=== PATIENT | male | born 1955 | race Caucasian/White ===

== ENCOUNTER 2019-07-04 10:46 | Inpatient (IN) | payer OTHER ==
[~2019-07-04] VITALS: Ht 170.2 cm; Wt 108.9 kg
--- OUTSIDE RECORDS SUMMARY | 2019-07-04 10:48 | XMS REPORT | Clinical Summary ---
Author Author [facility] Address Unknown Phone Unavailable Care Team Providers Care Slasher Sawyer Name Role Phone Asked, No Pcp PCP Unavailable Allergies Not on File Medications Not on file Active Problems Not on file Encounters Care Team Description Date Type Specialty Diane Gaitan MD Routine medical exam (Primary Dx) 05/24/2019 [facility] after 07/03/2018 Social History Date Tobacco Use Types Packs/Day Years Used Never Assessed Sex Assigned at Date Recorded Not on file Industry Job Start Date Occupation Not on file Not on file Not on file Travel End Travel History Travel Start No recent travel history available. Last Filed Vital Signs Not on file Plan of Treatment Health Maintenance Due Date Last Done Comments COLONOSCOPY SCREENING 2006 SHINGLES VACCINES (#1) 2006 INFLUENZA VACCINE 05/18/2019 Procedures Comments Procedure Name Priority Date/Time Associated Diagnosis WELLNESS EVENT QFT Routine 05/24/2019 Routine medical exam 10:27 AM CDT after 07/03/2018 Results * Wellness event QFT (05/24/2019 10:27 AM CDT) [facility] Quantiferon TB NEGATIVE [facility] gold plus Comment: Interpretive Data: Quantiferon TB Gold Plus Interferon gamma release is measured for specimens from each of the four collection tubes. A qualitative result (Negative, Positive, or Indeterminate) is based on interpretation of the four values, NIL, MITOGEN minus NIL (MITOGEN-NIL), TB1 minus NIL (TB1-NIL), and TB2 minus NIL (TB2-NIL). The NIL value represents nonspecific reactivity produced by the patient specimen. The MITOGEN-NIL value serves as the positive control for the patient specimen, demonstrating successful lymphocyte activity. The TB1-NIL tube specifically detects CD4+ lymphocyte reactivity, specifically stimulated by the TB1 antigens. The TB2-NIL tube detects both CD4+ and CD8+ lymphocyte reactivity, stimulated by TB2 antigens. An overall Negative result does not completely rule out TB infection. A false-positive result in the absence of other clinical evidence of TB infection is not uncommon. Refer to: Updated Guidelines for Using Interferon Gamma Release Assays to Detect Mycobacterium tuberculosis Infection --- [place], 2010 (http://www.cdc.gov/mmwr/previ ew/mmwrhtml/rc1028z3.htm), for more information concerning test performance in low-prevalence populations and use in occupational screening. Quantiferon 0.10 0.00 - 0.34 IU/mL [facility] plus TB1 minus NIL Quantiferon 0.16 0.00 - 0.34 IU/mL [facility] plus TB2 minus NIL Quantiferon 8.25 IU/mL [facility] mitogen minus NIL Quantiferon NIL 0.02 IU/mL [facility] Comment: Performed by [facility], [address] [place] [address] [email or web address], Emigdio Gilmore MD - Lab. Director Specimen Serum Performing Organization Address [facility] Phone Number [facility] [address] [place] [address] [facility] [address] [place] [address] after 07/03/2018 Insurance Type Payer Benefit Subscriber ID Effective Phone Address Plan / Dates Group HMO CIGNA CIGNA OPEN xxxxxxxxxxx 2017-P ACCESS/NET resent WORK Advance Directives For more information, please contact: [phone] Patient Academic Director Explanation Type Date Recorded Advance Directives, Living Will and Medical Power of Inside Technical Sales Representative
--- OUTSIDE RECORDS SUMMARY | 2019-07-04 10:49 | XMS REPORT | Continuity of Care Document ---
Author Author [id number] Organization [email or web address] Address Unknown Phone Unavailable Care Team Providers Care Senior Systems Developer Name Role Phone [facility] Unavailable Unavailable Problems Problem Status Onset Date Classification Date Reported Comments Source CHEST PAIN Active 05/14/2012 [facility] CHEST PAIN TYPICAL Active 05/14/2012 [facility] Acute non-ST segment elevation myocardial infarction Active Problem 05/19/2012 [facility] Chest pain Active Problem 05/19/2012 [facility] CHEST PAIN NOS Active [facility] Medications Medication Details Route Status Patient Instructions Ordering Provider Order Date Source metoprolol 25 mg oral tablet, extended release 25 mg, 1 tab, PO, Daily, 30 tab, 1, 1, Substitution Allowed, ERTAB PO Active [facility] 05/17/2012 [facility] aspirin 325 mg tablet, enteric coated 325 mg, 1 tab, PO, Daily, 30 tab, 1, 1, Substitution Allowed, ECTAB [place] [facility] [place] [facility] Plavix 75 mg oral tablet 75 mg, 1 tab, PO, Daily, 30 tab, 1, 1, Substitution Allowed, TAB PO Active [facility] 05/17/2012 [facility] docusate sodium 100 mg oral capsule 100 mg, 1 cap, Route: PO, Drug form: CAP, BID, PRN Bowel Movements, Priority: NOW, Start date: 05/17/12 10:51:00, Duration: 30 day, Stop date: 06/16/12 10:50:00 PO No Longer [place] [facility] [place]2012 [facility] calcium gluconate + Sodium Chloride 0.9% IV 80 mL 2,000 mg, 20 mL, Route: IVPB, ONCE, Start date: 05/17/12 9:58:00, Stop date: 05/17/12 9:58:00 IVPB No Longer [place] [facility] [place]/17/2012 [facility] magnesium sulfate 2 gm, 50 mL, Route: IVPB, Drug form: INJ, ONCE, Total dose=2 gm, Start date: 05/17/12 9:58:00, Duration: 1 doses or times, Stop date: 05/17/12 9:58:00 IVPB No Longer Active [facility] 05/17/2012 [facility] Protonix 40 mg, 1 tab, Route: PO, Drug form: ECTAB, Before Dinner, Start date: 05/16/12 16:30:00, Duration: 30 day, Stop date: 06/14/12 16:30:00 PO No Longer Active [facility] 05/16/2012 [facility] Plavix 75 mg, 1 tab, Route: PO, Drug form: TAB, Daily, Start date: 05/16/12 9:00:00, Duration: 30 day, Stop date: 06/14/12 9:00:00 PO No Longer Active [facility] 05/16/2012 [facility] magnesium oxide 400 mg, 1 tab, Route: PO, Drug form: TAB, BID, Start date: 05/16/12 9:00:00, Duration: 30 day, Stop date: 06/14/12 17:00:00 [facility] heparin 5000 units/mL injectable solution 5,000 unit, 1 mL, Route: SUB-Q, Drug form: INJ, Q8H, Start date: 05/16/12 0:00:00, Duration: 30 day, Stop date: 06/14/12 16:00:00 [facility]-Q [facility] pravastatin 20 mg, 1 tab, Route: PO, Drug form: TAB, QPM, Start date: 05/15/12 17:00:00, Duration: 30 day, Stop date: 06/13/12 17:00:00 PO No Longer Active [facility] 05/15/2012 [facility] clopidogrel 600 mg, 8 tab, Route: PO, Drug form: TAB, ONCE, Start date: 05/15/12 9:55:00, Duration: 1 doses or times, Stop date: 05/15/12 9:55:00 PO No Longer Active [facility] 05/15/2012 [facility] aspirin 325 mg, 1 tab, Route: PO, Drug form: TAB, Daily, Start date: 05/15/12 9:00:00, Duration: 30 day, Stop date: 06/13/12 9:00:00 PO No Longer Active [facility] 05/15/2012 [facility] pneumococcal 23-valent vaccine 0.5 ml, Route: IM, Drug Form: INJ, Daily, Start date: 05/15/12 9:00:00, Duration: 1 doses or times, Stop date: 05/15/12 9:00:00 IM No Longer Active [facility] 05/15/2012 [facility] heparin 5,000 unit, 1 mL, Route: SUB-Q, Drug form: INJ, Q12H, Start date: 05/15/12 9:00:00, Duration: 30 day, Stop date: 06/13/12 21:00:00 SUB-Q No Longer [place] [facility] [place]/2012 [facility] metoprolol extended release 25 mg, 1 tab, Route: PO, Drug form: ERTAB, Daily, Start date: 05/15/12 9:00:00, Duration: 30 day, Stop date: 06/13/12 9:00:00 PO No Longer Active [facility] 05/15/2012 [facility] lisinopril 10 mg, 1 tab, Route: PO, Drug form: TAB, Daily, Start date: 05/15/12 9:00:00, Duration: 30 day, Stop date: 06/13/12 9:00:00 PO No Longer Active [facility] 05/15/2012 [facility] heparin 2,400 unit, 2.4 mL, Route: IV, Drug form: INJ, PRN, PRN Abnormal Lab Result, Start date: 05/15/12 3:42:00, Duration: 30 day, Stop date: 06/14/12 3:41:00 IV No Longer [place] [facility] [place]/2012 [facility] Heparin - infusion (ACS Protocol) heparin 25,000 units in D5W 500 mL Premix 25,000 unit 25,000 unit, 500 mL, Rate: Start at 13 units/kg/hr - adjust per ACS protocol, Route: IV, Total Volume: 500 ml, Start date: 05/15/12 3:29:00, Duration: 30 day, Stop date: 06/14/12 3:28:00, Replace Every: 24 hr IV No Longer Active [facility] 05/15/2012 [facility] Heparin - one time bolus for ACS 4,900 unit, 4.9 mL, Route: IV, Drug form: INJ, ONCE, Priority: STAT, Start date: 05/15/12 3:29:00, Stop date: 05/15/12 3:29:00 IV No Longer Active [facility] 05/15/2012 [facility] Tradjenta 5 mg oral tablet 5 mg, 1 tab, PO, Daily, Substitution Allowed PO Active 05/15/2012 [facility] lisinopril 10 mg oral tablet 10 mg, 1 tab, PO, Daily, Substitution Allowed PO Active 05/15/2012 [facility] pravastatin 20 mg oral tablet 20 mg, 1 tab, PO, Daily, Substitution Allowed PO Active 05/15/2012 [facility] insulin aspart 2 unit, 0.02 mL, Route: SUB-Q, Drug form: SOLN, TID-Before Meals, PRN Blood Glucose Results, Start date: 05/15/12 0:46:00, Duration: 30 day, Stop date: 06/14/12 0:45:00 SUB- Q No Longer Active [facility] 05/15/2012 [facility] glucagon 1 mg, Route: IM, Drug form: PDR/INJ, PRN, PRN Blood Glucose Results, Start date: 05/15/12 0:46:00, Duration: 30 day, Stop date: 06/14/12 0:45:00 IM No Longer Active [facility] 05/15/2012 [facility] Dextrose 50% Syringe 12.5 gm, 25 mL, Route: IVP, Drug Form: INJ, PRN, PRN Blood Glucose Results, Start date: 05/15/12 0:46:00, Duration: 30 day, Stop date: 06/14/12 0:45:00 IVP No Longer Active [facility] 05/15/2012 [facility] acetaminophen 650 mg, 2 tab, Route: PO, Drug form: TAB, Q4H, PRN Pain/Fever, Start date: 05/15/12 0:36:00, Duration: 30 day, Stop date: 06/14/12 0:35:00 PO No Longer Active [facility] 05/15/2012 [facility] temazepam 15 mg, 1 cap, Route: PO, Drug form: CAP, Bedtime, PRN Insomnia, Start date: 05/15/12 0:36:00, Duration: 30 day, Stop date: 06/14/12 0:35:00 PO No Longer Active [facility] 05/15/2012 [facility] Omnipaque 350mg/ml 150 mL, Route: IVP, Drug Form: SOLN, ONCALL, STAT, Start date: 05/14/12 22:40:00, Duration: 1 doses or times, Dose=2.2ml/kg, Max tezt=830egAhev=4.2ml/kg, Max gmvh=399ie IVP No Longer Active [facility] 05/15/2012 [facility] morphine Sulfate 2 mg, 0.5 mL, Route: IVP, Drug form: INJ, ONCE, Priority: STAT, Start date: 05/14/12 22:33:00, Stop date: 05/14/12 22:33:[address] [facility] 05/15/2012 [facility] nitroglycerin 2% topical ointment 1 inch, Route: TOP, ONCE, STAT, Start date: 05/14/12 22:14:00, Stop date: 05/14/12 22:14:00 TOP No Longer Active [facility] 05/15/2012 [facility] nitroglycerin SL Tab 0.6 mg, Route: SL, ONCE, Start date: 05/14/12 22:11:00, Stop date: 05/14/12 22:11:[address] Long[address] [facility] 05/15/2012 [facility] NS (Bolus) IV 1,000 mL 1,000 mL, Rate: 1,000 ml/hr, Infuse over: 1 hr, Route: IV, Dosing Weight 100 kg, Total Volume: 1,000, Start date: 05/14/12 21:09:00, Duration: 30 day, Stop date: 06/13/12 21:08:00 IV No Longer Active [facility] 05/15/2012 [facility] morphine Sulfate 2 mg, 0.5 mL, Route: IVP, Drug form: INJ, ONCE, Priority: STAT, Start date: 05/14/12 20:54:00, Stop date: 05/14/12 20:54:00 IVP No Longer Active [facility] 05/15/2012 [facility] metoprolol tartrate Substitution Allowed No Longer Active 05/15/2012 [facility] metFORmin 1,000 mg, PO, BID, Substitution Allowed PO Active 05/15/2012 [facility] aspirin 81 mg tablet, enteric coated 81 mg, 1 tab, Route: PO, Drug form: ECTAB, ONCE, Priority: STAT, Start date: 05/14/12 19:58:00, Stop date: 05/14/12 19:58:00 PO No Longer Active [facility] 05/15/2012 [facility] morphine Sulfate 4 mg, 1 mL, Route: IVP, Drug form: INJ, ONCE, Priority: STAT, Start date: 05/14/12 19:58:00, Stop date: 05/14/12 19:58:00 IVP No Longer Active [facility] 05/15/2012 [facility] Allergies, Adverse Reactions, Alerts Substance Category Reaction Severity Reaction type Status Date Reported Comments Source Zocor drug allergy Allergy Active [facility] Immunizations Immunization Date Given Site Status Last Updated Comments Source pneumococcal 23-valent vaccine 05/15/2012 completed Katharina [facility] Results Order Name Results Value Reference Range Date Interpretation Comments Source BEDSIDE GLUCOSE TESTING Gluc POC Lifscn 203 70 - 99 05/17/2012 HI <sup>1</sup>Interpretive Data: Upper Reportable Limit: 200 mg/dL. [facility] BEDSIDE GLUCOSE TESTING Gluc POC Lifscn 69 70 - 99 05/17/2012 LOW <sup>2</sup>Interpretive Data: Upper Reportable Limit: 200 mg/dL. [facility] CHEMISTRY Phosphorus 4.1 2.5 - 4.5 05/17/2012 Normal [facility] CHEMISTRY Ca Ion 1.02 1.16 - 1.30 05/17/2012 LOW [facility] CHEMISTRY Ca Norm 1.04 1.16 - 1.30 05/17/2012 LOW [facility] CHEMISTRY Ca Norm mgdL 4.16 4.65 - 5.20 05/17/2012 LOW [facility] CHEMISTRY Ca Ion mgdL 4.08 4.65 - 5.20 05/17/2012 LOW [facility] CHEMISTRY Magnesium Lvl 1.7 1.8 - 2.4 05/17/2012 LOW [facility] CHEMISTRY AGAP 16.2 10.0 - 20.0 05/17/2012 Normal [facility] CHEMISTRY Calcium Lvl 8.8 8.5 - 10.5 05/17/2012 Normal [facility] CHEMISTRY CO2 23 24 - 32 05/17/2012 LOW [facility] CHEMISTRY Glucose Lvl 120 70 - 99 05/17/2012 HI <sup>5</sup>Interpretive Data: Adult reference range values reflect the clinical guidelines
of the [place] [employer]. [facility] CHEMISTRY Creatinine Lvl 0.9 0.5 - 1.4 05/17/2012 Normal [facility] CHEMISTRY Chloride Lvl 106 95 - 109 05/17/2012 Normal [facility] CHEMISTRY Potassium Lvl 4.2 3.5 - 5.1 05/17/2012 Normal <sup>4</sup>Result Comment: Specimen Slightly Hemolyzed. [facility] CHEMISTRY BUN 15 7 - 22 05/17/2012 Normal [facility] CHEMISTRY Sodium Lvl 141 135 - 145 05/17/2012 Normal [facility] HEMATOLOGY Eosinophils # 0.3 0.0 - 0.5 05/17/2012 Normal [facility] HEMATOLOGY Lymphocytes # 2.9 1.0 - 5.5 05/17/2012 Normal [facility] HEMATOLOGY Segs-Bands # 6.6 1.5 - 8.1 05/17/2012 Normal [facility] HEMATOLOGY Monocytes # 0.6 0.0 - 0.8 05/17/2012 Normal [facility] HEMATOLOGY Basophils # 0.1 0.0 - 0.2 05/17/2012 Normal [facility] HEMATOLOGY Segs 63.4 45.0 - 75.0 05/17/2012 Normal [facility] HEMATOLOGY Lymphocytes 27.5 20.0 - 40.0 05/17/2012 Normal [facility] HEMATOLOGY Eosinophils 2.8 0.0 - 4.0 05/17/2012 Normal [facility] HEMATOLOGY Monocytes 5.8 2.0 - 12.0 05/17/2012 Normal [facility] HEMATOLOGY Basophils 0.5 0.0 - 1.0 05/17/2012 Normal [facility] HEMATOLOGY MCHC 33.5 32.0 - 36.0 05/17/2012 Normal [facility] HEMATOLOGY MPV 9.1 7.4 - 10.4 05/17/2012 Normal [facility] HEMATOLOGY Platelet 196 133 - 450 05/17/2012 Normal [facility] HEMATOLOGY RDW 13.6 11.5 - 14.5 05/17/2012 Normal [facility] HEMATOLOGY Hct 39.0 42.0 - 54.0 05/17/2012 LOW [facility] HEMATOLOGY MCV 87.4 80.0 - 94.0 05/17/2012 Normal [facility] HEMATOLOGY MCH 29.3 27.0 - 31.0 05/17/2012 Normal [facility] HEMATOLOGY Hgb 13.1 14.0 - 18.0 05/17/2012 LOW [facility] HEMATOLOGY WBC 10.5 3.7 - 10.4 05/17/2012 HI [facility] HEMATOLOGY RBC 4.47 4.70 - 6.10 05/17/2012 [facility] BEDSIDE GLUCOSE TESTING Gluc POC Lifscn 134 70 - 99 05/17/2012 HI <sup>3</sup>Interpretive Data: Upper Reportable Limit: 200 mg/dL. [facility] HEMATOLOGY Plav Effect Plt 26 05/16/2012 NA <sup>18</sup>Result Comment: called to jessica montalvo 05/16/2012 15:22:37 CDT by rve.
<sup>19</sup>Interpretive Data: Plavix (P2Y12) Platelet Function Test:
Therapeutic - Higher % inhibition associated with expected
anti-platelet effect
Pre-Surgical - Less than 20% inhibition

Note:
Results are reported in percent inhibition (Percent change
from baseline aggregation - Calculated from the PRU result
and the Base result). For pre-operative clearance a level of
less than 20% inhibition is recommended. No definitive
relationship has been drawn between percentage inhibition
and dosage.

Interference:
Platelet counts less than 120,000 or greater than 502,000
Hematocrit values less than 33% or greater than 52%
Patient taking GP IIb/IIIa Inhibitor, e.g. ReoPro or Integrilin [facility] BEDSIDE GLUCOSE TESTING Comment1 Notify RN/MD 05/16/2012 NA [facility] CHEMISTRY Magnesium Lvl 1.7 1.8 - 2.4 05/16/2012 LOW [facility] CHEMISTRY Ca Ion 1.23 1.16 - 1.30 05/16/2012 Normal [facility] CHEMISTRY Ca Ion mgdL 4.92 4.65 - 5.20 05/16/2012 Normal [facility] CHEMISTRY Ca Norm 1.26 1.16 - 1.30 05/16/2012 Normal [facility] CHEMISTRY Ca Norm mgdL 5.04 4.65 - 5.20 05/16/2012 Normal [facility] CHEMISTRY Calcium Lvl 9.0 8.5 - 10.5 05/16/2012 Normal [facility] CHEMISTRY CO2 26 24 - 32 05/16/2012 Normal [facility] CHEMISTRY Chloride Lvl 104 95 - 109 05/16/2012 Normal [facility] CHEMISTRY Sodium Lvl 142 135 - 145 05/16/2012 Normal [facility] CHEMISTRY Creatinine Lvl 0.9 0.5 - 1.4 05/16/2012 Normal [facility] CHEMISTRY BUN 14 7 - 22 05/16/2012 Normal [facility] CHEMISTRY Potassium Lvl 4.0 3.5 - 5.1 05/16/2012 Normal [facility] CHEMISTRY Glucose Lvl 130 70 - 99 05/16/2012 HI <sup>6</sup>Interpretive Data: Adult reference range values reflect the clinical guidelines
of the [place] [employer]. [facility] CHEMISTRY AGAP 16.0 10.0 - 20.0 05/16/2012 Normal [facility] CHEMISTRY Phosphorus 4.6 2.5 - 4.5 05/16/2012 HI [facility] HEMATOLOGY Segs-Bands # 6.6 1.5 - 8.1 05/16/2012 Normal [facility] HEMATOLOGY Lymphocytes # 2.5 1.0 - 5.5 05/16/2012 Normal [facility] HEMATOLOGY Monocytes # 0.7 0.0 - 0.8 05/16/2012 Normal [facility] HEMATOLOGY Basophils 0.2 0.0 - 1.0 05/16/2012 Normal [facility] HEMATOLOGY Segs 64.8 45.0 - 75.0 05/16/2012 Normal [facility] HEMATOLOGY Eosinophils # 0.3 0.0 - 0.5 05/16/2012 Normal [facility] HEMATOLOGY Basophils # 0.0 0.0 - 0.2 05/16/2012 Normal [facility] HEMATOLOGY Lymphocytes 24.5 20.0 - 40.0 05/16/2012 [facility] HEMATOLOGY Monocytes 7.1 2.0 - 12.0 05/16/2012 [facility] HEMATOLOGY Eosinophils 3.4 0.0 - 4.0 05/16/2012 [facility] HEMATOLOGY MCV 87.7 80.0 - 94.0 05/16/2012 [facility] HEMATOLOGY MCHC 33.5 32.0 - 36.0 05/16/2012 [facility] HEMATOLOGY RDW 13.4 11.5 - 14.5 05/16/2012 [facility] HEMATOLOGY MCH 29.4 27.0 - 31.0 05/16/2012 [facility] HEMATOLOGY Platelet 200 133 - 450 05/16/2012 [facility] HEMATOLOGY MPV 9.1 7.4 - 10.4 05/16/2012 [facility] HEMATOLOGY WBC 10.2 3.7 - 10.4 05/16/2012 [facility] HEMATOLOGY RBC 4.36 4.70 - 6.10 05/16/2012 [facility] HEMATOLOGY Hct 38.2 42.0 - 54.0 05/16/2012 [facility] HEMATOLOGY Hgb 12.8 14.0 - 18.0 05/16/2012 [facility] BEDSIDE GLUCOSE TESTING Comment1 Notify RN/ 05/16/2012 [facility] CHEMISTRY U Phencyc Scr Negative *NA* (05/15/2012 10:23:00) Negative 05/15/2012 [facility] CHEMISTRY UDS Note See Note 14 (05/15/2012 10:23:00) 05/15/2012 Normal <sup>14</sup>Interpretive Data: Drugs reported as positive have not been confirmed by a second
method and should be used for medical purposes only. To order
confirmation, contact laboratory.

note: Below are cut-off concentrations for all urine drugs of
abuse performed in the laboratory. Some drugs listed in the table
may not be included in this panel.

Description Cut-off concentration

Amphetamine 1000 ng/mL
Barbiturates 200 ng/mL
Benzodiazepines 300 ng/mL
Cocaine metabolites 300 ng/mL
Opiates 300 ng/mL
Phencyclidine 25 ng/mL
Propoxyphene 300 ng/mL
Marijuana metabolites 50 ng/mL
Methadone 300 ng/ mL
Urine alcohol 20 mg/dL [facility] CHEMISTRY U Opiate Scr Positive *ABN* (05/15/2012 10:23:00) Negative 05/15/2012 ABN [facility] CHEMISTRY U Cannab Scr Negative *NA* (05/15/2012 10:23:00) Negative 05/15/2012 NA [facility] CHEMISTRY U Benzodia Scr Negative *NA* (05/15/2012 10:23:00) Negative 05/15/2012 [facility] CHEMISTRY U Cocaine Scr Negative *NA* (05/15/2012 10:23:00) Negative 05/15/2012 NA [facility] CHEMISTRY U Amph Scr Negative *NA* (05/15/2012 10:23:00) Negative 05/15/2012 [facility] CHEMISTRY U Adilene Scr Negative *NA* (05/15/2012 10:23:00) Negative 05/15/2012 NA [facility] CHEMISTRY U Propoxyph Scr Negative *NA* (05/15/2012 10:23:00) Negative 05/15/2012 [facility] CHEMISTRY U Methadone Scr Negative *NA* (05/15/2012 10:23:00) Negative 05/15/2012 [facility] HEMATOLOGY PTT 44.9 22.9 - 35.8 05/15/2012 HI <sup>16</sup>Interpretive Data: Heparin Therapeutic Range: 57 - 92 Seconds [facility] BEDSIDE GLUCOSE TESTING Comment1 Notify RN/ 05/15/2012 [facility] CHEMISTRY Troponin-T 0.128 0.000 - 0.100 05/15/2012 CRIT <sup>8</sup>Result Comment: Critical Result(s) called to Day Desai at 05/15/2012 08:16:05 CDT by Melvin. Read back OK. [facility] CHEMISTRY Total CK 259 12 - 191 05/15/2012 [facility] CHEMISTRY Troponin-I 2.72 0.00 - 0.40 05/15/2012 CRIT <sup>10</sup>Result Comment: Critical Result(s) called to day katharina at 05/15/2012 08:10:32 CDT by mlban. Read back OK. [facility] CHEMISTRY Hgb A1C 7.6 05/15/2012 NA <sup>13</sup>Interpretive Data: HbA1C% eAG(mg/dL) Interpretation
6.0 126 Very good control
6.5 140 Very good control
7.0 154 Good Control
7.5 169 Good Control
8.0 183 Marginal Control, take action to lower
8.5 197 Marginal Control, take action to lower
9.0 212 Poor Control, take action to lower
9.5 226 Poor Control, take action to lower
10.0 240 Poor Control, take action to lower [facility] CHEMISTRY CK MB Index 6.8 0.0 - 2.5 05/15/2012 [facility] CHEMISTRY CK MB 17.6 0.5 - 3.6 05/15/2012 [facility] HEMATOLOGY Lymphocytes # 3.8 1.0 - 5.5 05/15/2012 [facility] HEMATOLOGY Segs-Bands # 6.2 1.5 - 8.1 05/15/2012 [facility] HEMATOLOGY Basophils 0.5 0.0 - 1.0 05/15/2012 [facility] HEMATOLOGY Eosinophils 2.7 0.0 - 4.0 05/15/2012 [facility] HEMATOLOGY Monocytes 6.1 2.0 - 12.0 05/15/2012 Normal [facility] HEMATOLOGY Basophils # 0.1 0.0 - 0.2 05/15/2012 [facility] HEMATOLOGY Eosinophils # 0.3 0.0 - 0.5 05/15/2012 [facility] HEMATOLOGY Monocytes # 0.7 0.0 - 0.8 05/15/2012 [facility] HEMATOLOGY Lymphocytes 34.4 20.0 - 40.0 05/15/2012 Normal [facility] HEMATOLOGY Segs 56.3 45.0 - 75.0 05/15/2012 Normal [facility] HEMATOLOGY RBC 4.04 4.70 - 6.10 05/15/2012 [facility] HEMATOLOGY MCHC 34.0 32.0 - 36.0 05/15/2012 Normal [facility] HEMATOLOGY MCH 29.7 27.0 - 31.0 05/15/2012 Normal [facility] HEMATOLOGY MCV 87.4 80.0 - 94.0 05/15/2012 Normal [facility] HEMATOLOGY Hct 35.4 42.0 - 54.0 05/15/2012 [facility] HEMATOLOGY Hgb 12.0 14.0 - 18.0 05/15/2012 [facility] HEMATOLOGY RDW 13.7 11.5 - 14.5 05/15/2012 Normal [facility] HEMATOLOGY MPV 9.1 7.4 - 10.4 05/15/2012 Normal [facility] HEMATOLOGY Platelet 195 133 - 450 05/15/2012 Normal [facility] HEMATOLOGY WBC 11.1 3.7 - 10.4 05/15/2012 HI [facility] HEMATOLOGY PTT 31.0 22.9 - 35.8 05/15/2012 Normal <sup>17</sup>Interpretive Data: Heparin Therapeutic Range: 57 - 92 Seconds [facility] HEMATOLOGY INR 1.05 0.85 - 1.17 05/15/2012 Normal <sup>15</sup>Interpretive Data: RECOMMENDED RANGES FOR PROTIME INR:
2.0-3.0 for most medical and surgical thromboembolic states.
2.5-3.5 for artificial heart valves and recurrent embolism.

INR SHOULD BE USED ONLY FOR PATIENTS ON STABLE ANTICOAGULANT THERAPY. [facility] HEMATOLOGY PT 13.7 12.0 - 14.7 05/15/2012 Normal [facility] CHEMISTRY Ca Ion mgdL 4.60 4.65 - 5.20 05/15/2012 [facility] CHEMISTRY Ca Norm 1.18 1.16 - 1.30 05/15/2012 Normal [facility] CHEMISTRY Ca Norm mgdL 4.72 4.65 - 5.20 05/15/2012 Normal [facility] CHEMISTRY Ca Ion 1.15 1.16 - 1.30 05/15/2012 LOW [facility] CHEMISTRY Phosphorus 3.6 2.5 - 4.5 05/15/2012 Normal [facility] CHEMISTRY Magnesium Lvl 1.5 1.8 - 2.4 05/15/2012 LOW [facility] CHEMISTRY AGAP 17.0 10.0 - 20.0 05/15/2012 Normal [facility] CHEMISTRY Calcium Lvl 8.4 8.5 - 10.5 05/15/2012 LOW [facility] CHEMISTRY CO2 23 24 - 32 05/15/2012 LOW [facility] CHEMISTRY Chloride Lvl 105 95 - 109 05/15/2012 Normal [facility] CHEMISTRY Potassium Lvl 4.0 3.5 - 5.1 05/15/2012 Normal [facility] CHEMISTRY Sodium Lvl 141 135 - 145 05/15/2012 Normal [facility] CHEMISTRY Creatinine Lvl 0.9 0.5 - 1.4 05/15/2012 Normal [facility] CHEMISTRY BUN 13 7 - 22 05/15/2012 Normal [facility] CHEMISTRY Glucose Lvl 117 70 - 99 05/15/2012 HI <sup>7</sup>Interpretive Data: Adult reference range values reflect the clinical guidelines
of the [place] [employer]. [facility] CHEMISTRY Troponin-T 0.148 0.000 - 0.100 05/15/2012 CRIT <sup>9</sup>Result Comment: Critical Result(s) called to Dacia Weiss at _05/15/2012 02:58:06 CDT [facility] [place]. Read back OK. [facility] CHEMISTRY Troponin-I 2.91 0.00 - 0.40 05/15/2012 CRIT <sup>11</sup>Result Comment: Critical Result(s) called to cherelle ray at 05/15/2012 02:34:53 CDT bydrake. Read back OK. [facility] CHEMISTRY Total CK 252 12 - 191 05/15/2012 HI [facility] CHEMISTRY LDL 78 0 - 129 05/15/2012 Normal [facility] CHEMISTRY Chol 147 120 - 200 05/15/2012 Normal [facility] CHEMISTRY HDL 42 >=35 05/15/2012 Normal [facility] CHEMISTRY Trig 133 0 - 200 05/15/2012 Normal [facility] CHEMISTRY CHD Risk 3.50 4.00 - 7.30 05/15/2012 LOW [facility] CHEMISTRY TSH 2.780 0.360 - 3.740 05/15/2012 Normal [facility] CHEMISTRY CK MB 18.9 0.5 - 3.6 05/15/2012 [facility] CHEMISTRY CK MB Index 7.5 0.0 - 2.5 05/15/2012 [facility] CHEMISTRY Bili Total 0.4 0.2 - 1.3 05/15/2012 Normal [facility] CHEMISTRY Alk Phos 115 39 - 136 05/15/2012 Normal [facility] CHEMISTRY AST 40 0 - 37 05/15/2012 [facility] CHEMISTRY Total Protein 7.8 6.4 - 8.4 05/15/2012 Normal [facility] CHEMISTRY Albumin Lvl 4.3 3.5 - 5.0 05/15/2012 Normal [facility] CHEMISTRY ALT 46 0 - 65 05/15/2012 Normal [facility] CHEMISTRY B/C Ratio 13 6 - 25 05/15/2012 Normal [facility] CHEMISTRY Globulin 3.5 2.0 - 4.0 05/15/2012 Normal [facility] CHEMISTRY A/G Ratio 1.2 0.7 - 1.6 05/15/2012 Normal [facility] CHEMISTRY Troponin-I 1.62 0.00 - 0.40 05/15/2012 CRIT <sup>12</sup>Result Comment: Critical Result(s) called to Shae Pena at _05/14/2012 21:30:13 CDT by_fcl. Read back OK. [facility] CHEMISTRY Myoglobin 82 25 - 72 05/15/2012 [facility] CHEMISTRY Troponin-T 0.092 0.000 - 0.100 05/15/2012 Normal [facility] CHEMISTRY Total CK 239 12 - 191 05/15/2012 [facility] CHEMISTRY CK MB Index 7.0 0.0 - 2.5 05/15/2012 [facility] CHEMISTRY CK MB 16.8 0.5 - 3.6 05/15/2012 [facility] Pathology Reports No Data Provided for This Section Diagnostic Reports No Data Provided for This Section Consultation Notes No Data Provided for This Section Discharge Summaries No Data Provided for This Section History and Physicals No Data Provided for This Section Vital Signs Vital Sign Value Date Comments Source Diastolic (mm Hg) 75 05/17/2012 [facility] Systolic (mm Hg) 107 05/17/2012 [facility] Diastolic (mm Hg) 60 05/17/2012 [facility] Systolic (mm Hg) 110 05/17/2012 [facility] Temperature Oral (F) 97.3 F 05/17/2012 [facility] Diastolic (mm Hg) 78 05/17/2012 [facility] Systolic (mm Hg) 112 05/17/2012 [facility] Temperature Oral (F) 97.8 F 05/17/2012 [facility] Temperature Oral (F) 98.2 F 05/17/2012 [facility] Respitory Rate 20 05/16/2012 [facility] Respitory Rate 20 05/16/2012 [facility] Respitory Rate 20 05/16/2012 [facility] Weight 81.4 05/15/2012 [facility] Weight 104.347 05/15/2012 [facility] Height 170.18 cm 05/15/2012 [facility] Height 170.18 cm 05/15/2012 [facility] Weight 104.091 05/15/2012 [facility] Height 170.18 cm 05/14/2012 [facility] Encounters Location Location Details Encounter Type Encounter Number Reason For Visit Attending Provider ADM Date DC Date Status Source [facility] Inpatient [id number] CHEST PAIN TYPICAL ALI DENKTAS 05/14/2012 05/17/2012 Active [facility] Outpatient [id number] Marcus Jeffries 07/26/2019 Active [facility] Procedures No Data Provided for This Section Assessment and Plan No Data Provided for This Section Plan of Care No Data Provided for This Section Social History No Data Provided for This Section Family History No Data Provided for This Section Advance Directives No Data Provided for This Section Functional Status No Data Provided for This Section
--- OUTSIDE RECORDS SUMMARY | 2019-07-04 10:49 | XMS REPORT | CCD ---
Author Author Auto Generated Organization [facility] Address Unknown Phone Unavailable Care Team Providers Care Digital Experience Manager Name Role Phone Jennie Rees CP Allergies, Adverse Reactions, Alerts Substance Reaction Status Zocor Active Problem List Condition Effective Dates Status Acute non-ST segment elevation myocardial infarction Active Chest pain Active Medications Medication Instructions Start Date End Date Status aspirin 325 mg, 1 tab, Route: PO, Drug 05/15/2012 05/17/2012 Discontinued form: TAB, Daily, Start date: 05/15/12 9:00:00, Duration: 30 day, Stop date: 06/13/12 9:00:00 nitroglycerin SL Tab 0.6 mg, Route: SL, ONCE, Start 05/14/2012 05/14/2012 Completed date: 05/14/12 22:11:00, Stop date: 05/14/12 22:11:00 pneumococcal 0.5 ml, Route: IM, Drug Form: INJ, 05/15/2012 05/15/2012 Completed 23-valent vaccine Daily, Start date: 05/15/12 9:00:00, Duration: 1 doses or times, Stop date: 05/15/12 9:00:00 morphine Sulfate 2 mg, 0.5 mL, Route: IVP, Drug 05/14/2012 05/15/2012 Completed form: INJ, ONCE, Priority: STAT, Start date: 05/14/12 22:33:00, Stop date: 05/14/12 22:33:00 heparin 5,000 unit, 1 mL, Route: SUB-Q, 05/15/2012 05/15/2012 Canceled Drug form: INJ, Q12H, Start date: 05/15/12 9:00:00, Duration: 30 day, Stop date: 06/13/12 21:00:00 Tradjenta 5 mg oral 5 mg, 1 tab, PO, Daily, 05/15/2012 Ordered tablet Substitution Allowed lisinopril 10 mg 10 mg, 1 tab, PO, Daily, 05/15/2012 Ordered oral tablet Substitution Allowed aspirin 81 mg 81 mg, 1 tab, Route: PO, Drug form: 05/14/2012 05/14/2012 Completed tablet, enteric ECTAB, ONCE, Priority: STAT, Start coated date: 05/14/12 19:58:00, Stop date: 05/14/12 19:58:00 pravastatin 20 mg 20 mg, 1 tab, PO, Daily, 05/15/2012 Ordered oral tablet Substitution Allowed pravastatin 20 mg, 1 tab, Route: PO, Drug form: 05/15/2012 05/17/2012 Discontinued TAB, QPM, Start date: 05/15/12 17:00:00, Duration: 30 day, Stop date: 06/13/12 17:00:00 acetaminophen 650 mg, 2 tab, Route: PO, Drug 05/15/2012 05/17/2012 Discontinued form: TAB, Q4H, PRN Pain/Fever, Start date: 05/15/12 0:36:00, Duration: 30 day, Stop date: 06/14/12 0:35:00 temazepam 15 mg, 1 cap, Route: PO, Drug form: 05/15/2012 05/17/2012 Discontinued CAP, Bedtime, PRN Insomnia, Start date: 05/15/12 0:36:00, Duration: 30 day, Stop date: 06/14/12 0:35:00 metoprolol 25 mg 25 mg, 1 tab, PO, Daily, 30 tab, 1, 05/17/2012 Ordered oral tablet, 1, Substitution Allowed, ERTAB extended release heparin 2,400 unit, 2.4 mL, Route: IV, Drug 05/15/2012 05/15/2012 Discontinued form: INJ, PRN, PRN Abnormal Lab Result, Start date: 05/15/12 3:42:00, Duration: 30 day, Stop date: 06/14/12 3:41:00 heparin 4,900 unit, 4.9 mL, Route: IV, Drug 05/15/2012 05/15/2012 Discontinued form: INJ, PRN, PRN Abnormal Lab Result, Start date: 05/15/12 3:42:00, Duration: 30 day, Stop date: 06/14/12 3:41:00 aspirin 325 mg 325 mg, 1 tab, PO, Daily, 30 tab, 05/17/2012 Ordered tablet, enteric 1, 1, Substitution Allowed, ECTAB coated Plavix 75 mg, 1 tab, Route: PO, Drug form: 05/16/2012 05/17/2012 Discontinued TAB, Daily, Start date: 05/16/12 9:00:00, Duration: 30 day, Stop date: 06/14/12 9:00:00 clopidogrel 600 mg, 8 tab, Route: PO, Drug 05/15/2012 05/15/2012 Completed form: TAB, ONCE, Start date: 05/15/12 9:55:00, Duration: 1 doses or times, Stop date: 05/15/12 9:55:00 magnesium oxide 400 mg, 1 tab, Route: PO, Drug 05/16/2012 05/17/2012 Discontinued form: TAB, BID, Start date: 05/16/12 9:00:00, Duration: 30 day, Stop date: 06/14/12 17:00:00 metoprolol tartrate Substitution Allowed 05/14/2012 05/15/2012 Discontinued Omnipaque 350mg/ml 150 mL, Route: IVP, Drug Form: 05/14/2012 05/14/2012 Completed MADDIE HENSON, STAT, Start date: 05/14/12 22:40:00, Duration: 1 doses or times, Dose=2.2ml/kg, Max yyob=[id number] Dose=2.2ml/kg, Max cggx=[id number] Plavix 75 mg oral 75 mg, 1 tab, PO, Daily, 30 tab, 1, 05/17/2012 Ordered tablet 1, Substitution Allowed, TAB Protonix 40 mg, 1 tab, Route: PO, Drug form: 05/16/2012 05/17/2012 Discontinued ECTAB, Before Dinner, Start date: 05/16/12 16:30:00, Duration: 30 day, Stop date: 06/14/12 16:30:00 metFORmin 1,000 mg, PO, BID, Substitution 05/14/2012 Ordered Allowed heparin 5000 5,000 unit, 1 mL, Route: SUB-Q, 05/16/2012 05/17/2012 Discontinued units/mL injectable Drug form: INJ, Q8H, Start date: solution 05/16/12 0:00:00, Duration: 30 day, Stop date: 06/14/12 16:00:00 calcium gluconate + 2,000 mg, 20 mL, Route: IVPB, ONCE, 05/17/2012 05/17/2012 Completed Sodium Chloride 0.9% Start date: 05/17/12 9:58:00, Stop IV 80 mL date: 05/17/12 9:58:00 morphine Sulfate 4 mg, 1 mL, Route: IVP, Drug form: 05/14/2012 05/14/2012 Completed INJ, ONCE, Priority: STAT, Start date: 05/14/12 19:58:00, Stop date: 05/14/12 19:58:00 magnesium sulfate 2 gm, 50 mL, Route: IVPB, Drug 05/17/2012 05/17/2012 Completed form: INJ, ONCE, Total dose=2 gm, Start date: 05/17/12 9:58:00, Duration: 1 doses or times, Stop date: 05/17/12 9:58:00 morphine Sulfate 2 mg, 0.5 mL, Route: IVP, Drug 05/14/2012 05/14/2012 Completed form: INJ, ONCE, Priority: STAT, Start date: 05/14/12 20:54:00, Stop date: 05/14/12 20:54:00 Heparin - infusion 25,000 unit, 500 mL, Rate: Start at 05/15/2012 05/15/2012 Discontinued (ACS Protocol) 13 units/kg/hr - adjust per ACS heparin 25,000 units protocol, Route: IV, Total Volume: in D5W 500 mL Premix 500 ml, Start date: 05/15/12 25,000 unit 3:29:00, Duration: 30 day, Stop date: 06/14/12 3:28:00, Replace Every: 24 hr Heparin - one time 4,900 unit, 4.9 mL, Route: IV, Drug 05/15/2012 05/15/2012 Completed bolus for ACS form: INJ, ONCE, Priority: STAT, Start date: 05/15/12 3:29:00, Stop date: 05/15/12 3:29:00 NS (Bolus) IV 1,000 1,000 mL, Rate: 1,000 ml/hr, Infuse 05/14/2012 05/17/2012 Discontinued mL over: 1 hr, Route: IV, Dosing Weight 100 kg, Total Volume: 1,000, Start date: 05/14/12 21:09:00, Duration: 30 day, Stop date: 06/13/12 21:08:00 docusate sodium 100 100 mg, 1 cap, Route: PO, Drug 05/17/2012 05/17/2012 Discontinued mg oral capsule form: CAP, BID, PRN Bowel Movements, Priority: NOW, Start date: 05/17/12 10:51:00, Duration: 30 day, Stop date: 06/16/12 10:50:00 pneumococcal 0.5 ml, Route: IM, Drug Form: INJ, 05/15/2012 05/15/2012 Completed 23-valent vaccine Start date: 05/15/12 9:00:00, Stop date: 05/15/12 9:00:00 nitroglycerin 2% 1 inch, Route: TOP, ONCE, STAT, 05/14/2012 05/14/2012 Completed topical ointment Start date: 05/14/12 22:14:00, Stop date: 05/14/12 22:14:00 insulin aspart 2 unit, 0.02 mL, Route: SUB-Q, Drug 05/15/2012 05/17/2012 Discontinued form: SOLN, TID-Before Meals, PRN Blood Glucose Results, Start date: 05/15/12 0:46:00, Duration: 30 day, Stop date: 06/14/12 0:45:00 insulin aspart 1 unit, 0.01 mL, Route: SUB-Q, Drug 05/15/2012 05/17/2012 Discontinued form: SOLN, TID-Before Meals, PRN Blood Glucose Results, Start date: 05/15/12 0:46:00, Duration: 30 day, Stop date: 06/14/12 0:45:00 insulin aspart 4 unit, 0.04 mL, Route: SUB-Q, Drug 05/15/2012 05/17/2012 Discontinued form: SOLN, TID-Before Meals, PRN Blood Glucose Results, Start date: 05/15/12 0:46:00, Duration: 30 day, Stop date: 06/14/12 0:45:00 insulin aspart 3 unit, 0.03 mL, Route: SUB-Q, Drug 05/15/2012 05/17/2012 Discontinued form: SOLN, TID-Before Meals, PRN Blood Glucose Results, Start date: 05/15/12 0:46:00, Duration: 30 day, Stop date: 06/14/12 0:45:00 insulin aspart 5 unit, 0.05 mL, Route: SUB-Q, Drug 05/15/2012 05/17/2012 Discontinued form: SOLN, TID-Before Meals, PRN Blood Glucose Results, Start date: 05/15/12 0:46:00, Duration: 30 day, Stop date: 06/14/12 0:45:00 glucagon 1 mg, Route: IM, Drug form: 05/15/2012 05/17/2012 Discontinued PDR/INJ, PRN, PRN Blood Glucose Results, Start date: 05/15/12 0:46:00, Duration: 30 day, Stop date: 06/14/12 0:45:00 Dextrose 50% Syringe 12.5 gm, 25 mL, Route: IVP, Drug 05/15/2012 05/17/2012 Discontinued Form: INJ, PRN, PRN Blood Glucose Results, Start date: 05/15/12 0:46:00, Duration: 30 day, Stop date: 06/14/12 0:45:00 Dextrose 50% Syringe 25 gm, 50 mL, Route: IVP, Drug 05/15/2012 05/17/2012 Discontinued Form: INJ, PRN, PRN Blood Glucose Results, Start date: 05/15/12 0:46:00, Duration: 30 day, Stop date: 06/14/12 0:45:00 metoprolol extended 25 mg, 1 tab, Route: PO, Drug form: 05/15/2012 05/17/2012 Discontinued release ERTAB, Daily, Start date: 05/15/12 9:00:00, Duration: 30 day, Stop date: 06/13/12 9:00:00 lisinopril 10 mg, 1 tab, Route: PO, Drug form: 05/15/2012 05/17/2012 Discontinued TAB, Daily, Start date: 05/15/12 9:00:00, Duration: 30 day, Stop date: 06/13/12 9:00:00 Immunizations Vaccine Date Status pneumococcal 23-valent vaccine 05/15/2012 Auth (Verified) Vital Signs Most recent to oldest [Reference Range]: 1 2 3 Height 170.18 cm (05/15/2012 00:36:00) 170.18 cm (05/15/2012 00:30:00) 170.18 cm (05/14/2012 17:17:00) Current Weight 104.091 kg (05/15/2012 00:30:00) Temperature Oral [96.4-99.1 DegF] 97.3 DegF (05/17/2012 12:03:00) 97.8 DegF (05/17/2012 05:06:00) 98.2 DegF (05/17/2012 00:01:00) Systolic Blood Pressure [90-140 mmHg] 107 mmHg (05/17/2012 14:34:00) 110 mmHg (05/17/2012 12:03:00) 112 mmHg (05/17/2012 09:00:00) Diastolic Blood Pressure [60-90 mmHg] 75 mmHg (05/17/2012 14:34:00) 60 mmHg (05/17/2012 12:03:00) 78 mmHg (05/17/2012 09:00:00) Respiratory Rate [14-20 BRMIN] 20 BRMIN (05/16/2012 18:00:00) 20 BRMIN (05/16/2012 16:00:00) 20 BRMIN (05/16/2012 14:00:00) Weight 81.4 kg (05/15/2012 04:06:00) 104.347 kg (05/15/2012 00:36:00) 104.091 kg (05/15/2012 00:30:00) Results BEDSIDE GLUCOSE TESTING Most recent to oldest [Reference Range]: 1 2 3 Gluc POC Lifscn [70-99 mg/dL] 203 mg/dL 1 *HI* (05/17/2012 11:51:00) 69 mg/dL 2 *LOW* (05/17/2012 06:23:00) 134 mg/dL 3 *HI* (05/16/2012 21:17:00) Comment1 Notify RN/MD *NA* (05/16/2012 05:44:00) Notify RN/MD *NA* (05/15/2012 22:07:00) Notify RN/MD *NA* (05/15/2012 06:32:00) 1Interpretive Data: Upper Reportable Limit: 200 mg/dL. 2Interpretive Data: Upper Reportable Limit: 200 mg/dL. 3Interpretive Data: Upper Reportable Limit: 200 mg/dL. CHEMISTRY Most recent to oldest [Reference Range]: 1 2 3 Sodium Lvl [135-145 mEq/L] 141 mEq/L (05/17/2012 05:31:00) 142 mEq/L (05/16/2012 05:07:00) 141 mEq/L (05/15/2012 00:43:00) Potassium Lvl [3.5-5.1 mEq/L] 4.2 mEq/L 4 (05/17/2012 05:31:00) 4.0 mEq/L (05/16/2012 05:07:00) 4.0 mEq/L (05/15/2012 00:43:00) Chloride Lvl [95-109 mEq/L] 106 mEq/L (05/17/2012 05:31:00) 104 mEq/L (05/16/2012 05:07:00) 105 mEq/L (05/15/2012 00:43:00) CO2 [24-32 mEq/L] 23 mEq/L *LOW* (05/17/2012 05:31:00) 26 mEq/L (05/16/2012 05:07:00) 23 mEq/L *LOW* (05/15/2012 00:43:00) AGAP [10.0-20.0 mEq/L] 16.2 mEq/L (05/17/2012 05:31:00) 16.0 mEq/L (05/16/2012 05:07:00) 17.0 mEq/L (05/15/2012 00:43:00) Creatinine Lvl [0.5-1.4 mg/dL] 0.9 mg/dL (05/17/2012 05:31:00) 0.9 mg/dL (05/16/2012 05:07:00) 0.9 mg/dL (05/15/2012 00:43:00) BUN [7-22 mg/dL] 15 mg/dL (05/17/2012 05:31:00) 14 mg/dL (05/16/2012 05:07:00) 13 mg/dL (05/15/2012 00:43:00) B/C Ratio [6-25] 13 (05/14/2012 20:15:00) Glucose Lvl [70-99 mg/dL] 120 mg/dL 5 *HI* (05/17/2012 05:31:00) 130 mg/dL 6 *HI* (05/16/2012 05:07:00) 117 mg/dL 7 *HI* (05/15/2012 00:43:00) Total Protein [6.4-8.4 g/dL] 7.8 g/dL (05/14/2012 20:15:00) Albumin Lvl [3.5-5.0 g/dL] 4.3 g/dL (05/14/2012 20:15:00) Globulin [2.0-4.0 g/dL] 3.5 g/dL (05/14/2012 20:15:00) A/G Ratio [0.7-1.6] 1.2 (05/14/2012 20:15:00) Calcium Lvl [8.5-10.5 mg/dL] 8.8 mg/dL (05/17/2012 05:31:00) 9.0 mg/dL (05/16/2012 05:07:00) 8.4 mg/dL *LOW* (05/15/2012 00:43:00) Phosphorus [2.5-4.5 mg/dL] 4.1 mg/dL (05/17/2012 05:31:00) 4.6 mg/dL *HI* (05/16/2012 05:07:00) 3.6 mg/dL (05/15/2012 00:43:00) Magnesium Lvl [1.8-2.4 mg/dL] 1.7 mg/dL *LOW* (05/17/2012 05:31:00) 1.7 mg/dL *LOW* (05/16/2012 05:07:00) 1.5 mg/dL *LOW* (05/15/2012 00:43:00) ALT [0-65 U/L] 46 U/L (05/14/2012 20:15:00) AST [0-37 U/L] 40 U/L *HI* (05/14/2012 20:15:00) Alk Phos [39-136 U/L] 115 U/L (05/14/2012 20:15:00) Bili Total [0.2-1.3 mg/dL] 0.4 mg/dL (05/14/2012 20:15:00) Total CK [12-191 U/L] 259 U/L *HI* (05/15/2012 04:55:00) 252 U/L *HI* (05/15/2012 00:43:00) 239 U/L *HI* (05/14/2012 20:15:00) CK MB [0.5-3.6 ng/mL] 17.6 ng/mL *HI* (05/15/2012 04:55:00) 18.9 ng/mL *HI* (05/15/2012 00:43:00) 16.8 ng/mL *HI* (05/14/2012 20:15:00) CK MB Index [0.0-2.5] 6.8 *HI* (05/15/2012 04:55:00) 7.5 *HI* (05/15/2012 00:43:00) 7.0 *HI* (05/14/2012 20:15:00) Troponin-T [0.000-0.100 ng/mL] 0.128 ng/mL 8 *CRIT* (05/15/2012 04:55:00) 0.148 ng/mL 9 *CRIT* (05/15/2012 00:43:00) 0.092 ng/mL (05/14/2012 20:15:00) Troponin-I [0.00-0.40 ng/mL] 2.72 ng/mL 10 *CRIT* (05/15/2012 04:55:00) 2.91 ng/mL 11 *CRIT* (05/15/2012 00:43:00) 1.62 ng/mL 12 *CRIT* (05/14/2012 20:15:00) Myoglobin [25-72 ng/mL] 82 ng/mL *HI* (05/14/2012 20:15:00) CHD Risk [4.00-7.30] 3.50 *LOW* (05/15/2012 00:43:00) Chol [120-200 mg/dL] 147 mg/dL (05/15/2012 00:43:00) Trig [0-200 mg/dL] 133 mg/dL (05/15/2012 00:43:00) HDL [>=35 mg/dL] 42 mg/dL (05/15/2012 00:43:00) LDL [0-129 mg/dL] 78 mg/dL (05/15/2012 00:43:00) Hgb A1C 7.6 % 13 *NA* (05/15/2012 04:55:00) TSH [0.360-3.740 uIU/mL] 2.780 uIU/mL (05/15/2012 00:43:00) Ca Ion mgdL [4.65-5.20 mg/dL] 4.08 mg/dL *LOW* (05/17/2012 05:31:00) 4.92 mg/dL (05/16/2012 05:07:00) 4.60 mg/dL *LOW* (05/15/2012 00:43:00) Ca Ion [1.16-1.30 mMol/L] 1.02 mMol/L *LOW* (05/17/2012 05:31:00) 1.23 mMol/L (05/16/2012 05:07:00) 1.15 mMol/L *LOW* (05/15/2012 00:43:00) Ca Norm [1.16-1.30 mMol/L] 1.04 mMol/L *LOW* (05/17/2012 05:31:00) 1.26 mMol/L (05/16/2012 05:07:00) 1.18 mMol/L (05/15/2012 00:43:00) Ca Norm mgdL [4.65-5.20 mg/dL] 4.16 mg/dL *LOW* (05/17/2012 05:31:00) 5.04 mg/dL (05/16/2012 05:07:00) 4.72 mg/dL (05/15/2012 00:43:00) U Methadone Scr [Negative] Negative *NA* (05/15/2012 10:23:00) U Propoxyph Scr [Negative] Negative *NA* (05/15/2012 10:23:00) U Amph Scr [Negative] Negative *NA* (05/15/2012 10:23:00) U Adilene Scr [Negative] Negative *NA* (05/15/2012 10:23:00) U Benzodia Scr [Negative] Negative *NA* (05/15/2012 10:23:00) U Cocaine Scr [Negative] Negative *NA* (05/15/2012 10:23:00) U Opiate Scr [Negative] Positive *ABN* (05/15/2012 10:23:00) U Phencyc Scr [Negative] Negative *NA* (05/15/2012 10:23:00) U Cannab Scr [Negative] Negative *NA* (05/15/2012 10:23:00) UDS Note See Note 14 (05/15/2012 10:23:00) 4Result Comment: Specimen Slightly Hemolyzed. 5Interpretive Data: Adult reference range values reflect the clinical guidelines of the [place]. 6Interpretive Data: Adult reference range values reflect the clinical guidelines of the [place] [employer]. 7Interpretive Data: Adult reference range values reflect the clinical guidelines of the [place]. 8Result Comment: Critical Result(s) called to Day Desai at 05/15/2012 08:16:05 CDT by Melvin. Read back OK. 9Result Comment: Critical Result(s) called to Dacia Weiss at _05/15/2012 02:58:06 CDT by_mgban. Read back OK. 10Result Comment: Critical Result(s) called to day posadas at 05/15/2012 08:10:32 CDT by felice. Read back OK. 11Result Comment: Critical Result(s) called to cherelle ray at 05/15/2012 02:34:53 CDT bydrake. Read back OK. 12Result Comment: Critical Result(s) called to Shae Pena at _05/14/2012 21:30:13 CDT by_fcaustin. Read back OK. 13Interpretive Data: HbA1C% eAG(mg/dL) Interpretation 6.0 126 Very good control 6.5 140 Very good control 7.0 154 Good Control 7.5 169 Good Control 8.0 183 Marginal Control, take action to lower 8.5 197 Marginal Control, take action to lower 9.0 212 Poor Control, take action to lower 9.5 226 Poor Control, take action to lower 10.0 240 Poor Control, take action to lower 14Interpretive Data: Drugs reported as positive have not [...] ng/mL Marijuana metabolites 50 ng/mL Methadone 300 ng/mL Urine alcohol 20 mg/dL HEMATOLOGY Most recent to oldest [Reference Range]: 1 2 3 WBC [3.7-10.4 K/CMM] 10.5 K/CMM *HI* (05/17/2012 05:31:00) 10.2 K/CMM (05/16/2012 05:07:00) 11.1 K/CMM *HI* (05/15/2012 04:55:00) RBC [4.70-6.10 M/CMM] 4.47 M/CMM *LOW* (05/17/2012 05:31:00) 4.36 M/CMM *LOW* (05/16/2012 05:07:00) 4.04 M/CMM *LOW* (05/15/2012 04:55:00) Hgb [14.0-18.0 g/dL] 13.1 g/dL *LOW* (05/17/2012 05:31:00) 12.8 g/dL *LOW* (05/16/2012 05:07:00) 12.0 g/dL *LOW* (05/15/2012 04:55:00) Hct [42.0-54.0 %] 39.0 % *LOW* (05/17/2012 05:31:00) 38.2 % *LOW* (05/16/2012 05:07:00) 35.4 % *LOW* (05/15/2012 04:55:00) MCV [80.0-94.0 fL] 87.4 fL (05/17/2012 05:31:00) 87.7 fL (05/16/2012 05:07:00) 87.4 fL (05/15/2012 04:55:00) MCH [27.0-31.0 pg] 29.3 pg (05/17/2012 05:31:00) 29.4 pg (05/16/2012 05:07:00) 29.7 pg (05/15/2012 04:55:00) MCHC [32.0-36.0 g/dL] 33.5 g/dL (05/17/2012 05:31:00) 33.5 g/dL (05/16/2012 05:07:00) 34.0 g/dL (05/15/2012 04:55:00) RDW [11.5-14.5 %] 13.6 % (05/17/2012 05:31:00) 13.4 % (05/16/2012 05:07:00) 13.7 % (05/15/2012 04:55:00) Platelet [133-450 K/CMM] 196 K/CMM (05/17/2012 05:31:00) 200 K/CMM (05/16/2012 05:07:00) 195 K/CMM (05/15/2012 04:55:00) MPV [7.4-10.4 fL] 9.1 fL (05/17/2012 05:31:00) 9.1 fL (05/16/2012 05:07:00) 9.1 fL (05/15/2012 04:55:00) Segs [45.0-75.0 %] 63.4 % (05/17/2012 05:31:00) 64.8 % (05/16/2012 05:07:00) 56.3 % (05/15/2012 04:55:00) Lymphocytes [20.0-40.0 %] 27.5 % (05/17/2012 05:31:00) 24.5 % (05/16/2012 05:07:00) 34.4 % (05/15/2012 04:55:00) Monocytes [2.0-12.0 %] 5.8 % (05/17/2012 05:31:00) 7.1 % (05/16/2012 05:07:00) 6.1 % (05/15/2012 04:55:00) Eosinophils [0.0-4.0 %] 2.8 % (05/17/2012 05:31:00) 3.4 % (05/16/2012 05:07:00) 2.7 % (05/15/2012 04:55:00) Basophils [0.0-1.0 %] 0.5 % (05/17/2012 05:31:00) 0.2 % (05/16/2012 05:07:00) 0.5 % (05/15/2012 04:55:00) Segs-Bands # [1.5-8.1 K/CMM] 6.6 K/CMM (05/17/2012 05:31:00) 6.6 K/CMM (05/16/2012 05:07:00) 6.2 K/CMM (05/15/2012 04:55:00) Lymphocytes # [1.0-5.5 K/CMM] 2.9 K/CMM (05/17/2012 05:31:00) 2.5 K/CMM (05/16/2012 05:07:00) 3.8 K/CMM (05/15/2012 04:55:00) Monocytes # [0.0-0.8 K/CMM] 0.6 K/CMM (05/17/2012 05:31:00) 0.7 K/CMM (05/16/2012 05:07:00) 0.7 K/CMM (05/15/2012 04:55:00) Eosinophils # [0.0-0.5 K/CMM] 0.3 K/CMM (05/17/2012 05:31:00) 0.3 K/CMM (05/16/2012 05:07:00) 0.3 K/CMM (05/15/2012 04:55:00) Basophils # [0.0-0.2 K/CMM] 0.1 K/CMM (05/17/2012 05:31:00) 0.0 K/CMM (05/16/2012 05:07:00) 0.1 K/CMM (05/15/2012 04:55:00) PT [12.0-14.7 seconds] 13.7 seconds (05/15/2012 03:52:00) INR [0.85-1.17] 1.05 15 (05/15/2012 03:52:00) PTT [22.9-35.8 seconds] 44.9 seconds 16 *HI* (05/15/2012 10:23:00) 31.0 seconds 17 (05/15/2012 03:52:00) Plav Effect Plt 26 % INH 18, 19 *NA* (05/16/2012 13:59:00) 15Interpretive Data: RECOMMENDED RANGES FOR PROTIME INR: 2.0-3.0 for most medical and surgical thromboembolic states. 2.5-3.5 for artificial heart valves and recurrent embolism. INR SHOULD BE USED ONLY FOR PATIENTS ON STABLE ANTICOAGULANT THERAPY. 16Interpretive Data: Heparin Therapeutic Range: 57 - 92 Seconds 17Interpretive Data: Heparin Therapeutic Range: 57 - 92 Seconds 18Result Comment: called to jessica montalvo 05/16/2012 15:22:37 CDT by rve. 19Interpretive Data: Plavix ([id number]) Platelet Function Test: Therapeutic [...]
--- OUTSIDE RECORDS SUMMARY | 2019-07-04 10:49 | XMS REPORT ---
Author Author [facility] Address Unknown Phone Unavailable Care Team Providers Care Summer Associate Name Role Phone Unavailable Unavailable Problems This patient has no known problems. Allergies, Adverse Reactions, Alerts This patient has no known allergies or adverse reactions. Medications This patient has no known medications. Encounters Start Date/Time End Date/Time Encounter Type Admission Type Attending [facility] Facility Care Department Encounter ID 2019-03-21 05:39:00 2019-03-21 05:39:00 Outpatient [id number]
[2019-07-04] MEDS ORDERED: SODIUM CHLORIDE 0.9% 1000ML 1,000 ML IV STA (10:50)
[2019-07-04] MEDS ORDERED: KETOROLAC TROMETHAMINE 30 MG/ML VIAL IV ONE (11:30)
[2019-07-04] MEDS ORDERED: ONDANSETRON HCL INJ 2MG/ML 2ML 2 MG/ML VIAL IV ONE (11:30)
--- NOTE | 2019-07-04 11:32 | Diagnostic Imaging Report ---
Chest, 1 view, 07/04/2019. History: Abdominal pain. Comparison: None available. Findings: The cardiomediastinal silhouette and pulmonary vasculature are within normal limits for a portable exam. There is no focal consolidation or pleural effusion. There are no acute osseous or soft tissue abnormalities. Impression: No acute cardiopulmonary abnormality. Signed by: Corey Escobar on 07/04/2019 11:28 AM
--- NOTE | 2019-07-04 11:44 | Diagnostic Imaging Report ---
CT of the abdomen and pelvis, without contrast, 07/04/2019. History: Right-sided abdominal pain. Comparison: None available. Technique: Multidetector CT scanning of the abdomen and pelvis was performed from the level of the lung bases to the inferior pubic rami without intravenous or oral contrast. Coronal and sagittal multiplanar reformations were obtained. RADIATION DOSE: Total DLP: 800 mGy*cm Dose modulation, iterative reconstruction, and/or weight based adjustment of the mA/kV was utilized to reduce the radiation dose to as low as reasonably achievable. Discussion: Examination is limited without contrast. Lung bases: A calcified granuloma is present in the left lower lobe. Abdomen: There is mild right hydronephrosis with perinephric fat stranding and mild dilatation of the proximal right ureter down to the level of L4-L5 where an 8 mm stone is present. No other stones are identified within the right kidney. The left kidney is normal in appearance. The liver, gallbladder, biliary tree, spleen, pancreas, and adrenal glands are unremarkable. The abdominal aorta is within normal limits. Scattered diverticuli are present within the colon without evidence of adjacent inflammation. The appendix is visualized and is normal. There is no bowel dilatation. There is no evidence of adenopathy or free fluid. Pelvis: The bladder, prostate, and seminal vesicles are unremarkable. There is no evidence of free fluid or adenopathy. Bones and soft tissues: Mild degenerative changes are present throughout the lumbar spine without evidence of lytic or sclerotic lesion. IMPRESSION: 1. 8 mm right ureteral stone causing mild right hydronephrosis. 2. Mild colonic diverticulosis without evidence of diverticulitis. Otherwise unremarkable noncontrast exam. Signed by: Corey Escobar on 07/04/2019 11:41 AM
[2019-07-04 12:04] LABS: BASOPHILS # (AUTO) 0.1 (0.0-0.1); BASOPHILS % 0.5 % (0.0-1.0); EOSINOPHILS # (AUTO) 0.1 (0.0-0.4); EOSINOPHILS % 0.3 % (0.0-6.0); HEMATOCRIT 38.3 % (38.2-49.6); HEMOGLOBIN 12.5 g/dL (14.0-18.0); LYMPHOCYTES # (AUTO) 3.4 (1.0-3.2); LYMPHOCYTES % 17.6 % (18.0-39.1); MEAN CORPUSCULAR HEMOGLOBIN 28.2 pg (28-32); MEAN CORPUSCULAR HGB CONC 32.6 g/dL (31-35); MEAN CORPUSCULAR VOLUME 86.5 fL (81-99); MONOCYTES # (AUTO) 1.1 (0.2-0.8); MONOCYTES % 5.9 % (4.4-11.3); NEUTROPHILS # (AUTO) 14.2 (2.1-6.9); NEUTROPHILS % 73.6 % (38.7-80.0); PLATELET COUNT 329 x10e3/uL (140-360); RED BLOOD COUNT 4.43 x10e6/uL (4.3-5.7); RED CELL DISTRIBUTION WIDTH 13.9 % (11.7-14.4)
[2019-07-04 12:20] LABS: ALBUMIN 3.7 g/dL (3.5-5.0); ALBUMIN/GLOBULIN RATIO 1.1 (0.8-2.0); ANION GAP 18.7 mmol/L (8-16); CALCIUM 9.6 mg/dL (8.4-10.2); CREATININE, SERUM 1.41 mg/dL (0.72-1.25); MAGNESIUM 1.5 MG/DL (1.3-2.1); POTASSIUM 3.7 mmol/L (3.5-5.1)
[2019-07-04 12:27] LABS: CREATINE KINASE MB 1.2 ng/mL (0-5.0)
--- NOTE | 2019-07-04 14:12 | NUR ---
PT UPDATED RE PENDING ADMIT TO HOSPITAL
[2019-07-04 14:28] LABS: BILIRUBIN,URINE NEGATIVE (NEGATIVE); KETONES,URINE NEGATIVE (NEGATIVE); LEUKOCYTE ESTERASE ,URINE NEGATIVE (NEGATIVE); NITRITE,URINE NEGATIVE (NEGATIVE); PROTEIN,URINE DIPSTICK NEGATIVE (NEGATIVE); URINE UROBILINOGEN 0.2 mg/dL (0.2 - 1)
[2019-07-04 14:38] LABS: COLOR,URINE YELLOW (YELLOW)
[2019-07-04 14:39] LABS: CLARITY,URINE SL CLOUDY (CLEAR)
[2019-07-04 14:44] LABS: BACTERIA,URINE RARE /HPF; EPITHELIAL CELLS,URINE RARE /LPF
[2019-07-04] MEDS: CEFTRIAXONE SOD 1 GM/NS 50 ML 50 ML IV SCH (14:49)
--- NOTE | 2019-07-04 14:50 | NUR ---
spouse to obtain home meds
[2019-07-04] MEDS ORDERED: DEXTROSE 50% SYRINGE 50 ML IV PRN (15:00)
[2019-07-04] MEDS ORDERED: MORPHINE SULFATE 2 MG/ML SYR 1ML IV PRN (15:00)
[2019-07-04] MEDS: INSULIN REGULAR, HUMAN 100 UNIT/1 ML 3ML VIAL SQ SCH ×2 (15:28→20:38)
--- NOTE | 2019-07-04 16:00 | NUR ---
pt arrived to unit resp even [id number] at this time no distress noted , pt ambulatory and able to make needs known, pt oriented to room and call light, bed rails up x2, bed in lowest position, call light in reach.
--- OUTSIDE RECORDS SUMMARY | 2019-07-04 16:05 | XMS REPORT | Clinical Summary ---
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 Quantiferon 0.10 0.00 - 0.34 IU/mL [facility] plus TB1 minus NIL Quantiferon 0.16 0.00 - 0.34 IU/mL [facility] plus TB2 minus NIL Quantiferon 8.25 IU/mL [facility] mitogen minus NIL Quantiferon NIL 0.02 IU/mL [facility] Comment: Performed by [facility], [address] [place] [address] [email or web address], Emigdio Gilmore MD - Lab. 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
--- OUTSIDE RECORDS SUMMARY | 2019-07-04 16:06 | XMS REPORT | Continuity of Care Document ---
Author Author [employer]ations Organization [employer] Address Unknown Phone Unavailable Care Team Providers Care Miller Head Wet Process Name Role Phone Musations Unavailable Unavailable Problems Problem Status Onset Date Classification Date Reported Comments Source CHEST PAIN Active 05/14/2012 [facility] CHEST PAIN TYPICAL Active 05/14/2012 [facility] Acute non-ST segment elevation myocardial infarction Active Problem 05/19/2012 [facility] Chest pain Active Problem 05/19/2012 [facility] CHEST PAIN NOS Active [facility] Medications Medication Details Route Status Patient Instructions Ordering Provider Order Date Source metoprolol 25 mg oral tablet, extended release 25 mg, 1 tab, PO, Daily, 30 tab, 1, 1, Substitution Allowed, ERTAB PO Active [facility] 05/17/2012 [facility] aspirin 325 mg tablet, enteric coated 325 mg, 1 tab, PO, Daily, 30 tab, 1, 1, Substitution Allowed, ECTAB PO Active [facility] [place] 05/17/2012 [facility] Plavix 75 mg oral tablet 75 mg, 1 tab, PO, Daily, 30 tab, 1, 1, Substitution Allowed, TAB PO Active [facility] 05/17/2012 [facility] docusate sodium 100 mg oral capsule 100 mg, 1 cap, Route: PO, Drug form: CAP, BID, PRN Bowel Movements, Priority: NOW, Start date: 05/17/12 10:51:00, Duration: 30 day, Stop date: 06/16/12 10:50:00 PO No Longer Active [facility] [place] 05/17/2012 [facility] calcium gluconate + Sodium Chloride 0.9% IV 80 mL 2,000 mg, 20 mL, Route: IVPB, ONCE, Start date: 05/17/12 9:58:00, Stop date: 05/17/12 9:58:00 IVPB No Longer Active [facility] [place] 05/17/2012 [facility] magnesium sulfate 2 gm, 50 mL, Route: IVPB, Drug form: INJ, ONCE, Total dose=2 gm, Start date: 05/17/12 9:58:00, Duration: 1 doses or times, Stop date: 05/17/12 9:58:00 IVPB No Longer Active [place] 05/17/2012 [facility] Protonix 40 mg, 1 tab, Route: PO, Drug form: ECTAB, Before Dinner, Start date: 05/16/12 16:30:00, Duration: 30 day, Stop date: 06/14/12 16:30:00 PO No Longer Active [facility] 05/16/2012 [facility] Plavix 75 mg, 1 tab, Route: PO, Drug form: TAB, Daily, Start date: 05/16/12 9:00:00, Duration: 30 day, Stop date: 06/14/12 9:00:00 PO No Longer Active [facility] 05/16/2012 [facility] magnesium oxide 400 mg, 1 tab, Route: PO, Drug form: TAB, BID, Start date: 05/16/12 9:00:00, Duration: 30 day, Stop date: 06/14/12 17:00:00 [facility] heparin 5000 units/mL injectable solution 5,000 unit, 1 mL, Route: SUB-Q, Drug form: INJ, Q8H, Start date: 05/16/12 0:00:00, Duration: 30 day, Stop date: 06/14/12 16:00:00 SUB-Q [facility] pravastatin 20 mg, 1 tab, Route: PO, Drug form: TAB, QPM, Start date: 05/15/12 17:00:00, Duration: 30 day, Stop date: 06/13/12 17:00:00 PO No Longer Active [facility] 05/15/2012 [facility] clopidogrel 600 mg, 8 tab, Route: PO, Drug form: TAB, ONCE, Start date: 05/15/12 9:55:00, Duration: 1 doses or times, Stop date: 05/15/12 9:55:00 PO No Longer Active [facility] 05/15/2012 [facility] aspirin 325 mg, 1 tab, Route: PO, Drug form: TAB, Daily, Start date: 05/15/12 9:00:00, Duration: 30 day, Stop date: 06/13/12 9:00:00 PO No Longer Active [facility] 05/15/2012 [facility] pneumococcal 23-valent vaccine 0.5 ml, Route: IM, Drug Form: INJ, Daily, Start date: 05/15/12 9:00:00, Duration: 1 doses or times, Stop date: 05/15/12 9:00:00 IM No Longer Active [facility] 05/15/2012 [facility] heparin 5,000 unit, 1 mL, Route: SUB-Q, Drug form: INJ, Q12H, Start date: 05/15/12 9:00:00, Duration: 30 day, Stop date: 06/13/12 21:00:00 SUB-Q No Longer Active [facility] [place] 05/15/2012 [facility] metoprolol extended release 25 mg, 1 tab, Route: PO, Drug form: ERTAB, Daily, Start date: 05/15/12 9:00:00, Duration: 30 day, Stop date: 06/13/12 9:00:00 PO No Longer Active [facility] 05/15/2012 [facility] lisinopril 10 mg, 1 tab, Route: PO, Drug form: TAB, Daily, Start date: 05/15/12 9:00:00, Duration: 30 day, Stop date: 06/13/12 9:00:00 PO No Longer Active [facility] 05/15/2012 [facility] heparin 2,400 unit, 2.4 mL, Route: IV, Drug form: INJ, PRN, PRN Abnormal Lab Result, Start date: 05/15/12 3:42:00, Duration: 30 day, Stop date: 06/14/12 3:41:00 IV No Longer Active [facility] [place] 05/15/2012 [facility] Heparin - infusion (ACS Protocol) heparin 25,000 units in D5W 500 mL Premix 25,000 unit 25,000 unit, 500 mL, Rate: Start at 13 units/kg/hr - adjust per ACS protocol, Route: IV, Total Volume: 500 ml, Start date: 05/15/12 3:29:00, Duration: 30 day, Stop date: 06/14/12 3:28:00, Replace Every: 24 hr IV No Longer Active [facility] 05/15/2012 [facility] Heparin - one time bolus for ACS 4,900 unit, 4.9 mL, Route: IV, Drug form: INJ, ONCE, Priority: STAT, Start date: 05/15/12 3:29:00, Stop date: 05/15/12 3:29:00 IV No Longer Active [place] 05/15/2012 [facility] Tradjenta 5 mg oral tablet 5 mg, 1 tab, PO, Daily, Substitution Allowed PO Active 05/15/2012 [facility] lisinopril 10 mg oral tablet 10 mg, 1 tab, PO, Daily, Substitution Allowed PO Active 05/15/2012 [facility] pravastatin 20 mg oral tablet 20 mg, 1 tab, PO, Daily, Substitution Allowed PO Active 05/15/2012 [facility] insulin aspart 2 unit, 0.02 mL, Route: SUB-Q, Drug form: SOLN, TID-Before Meals, PRN Blood Glucose Results, Start date: 05/15/12 0:46:00, Duration: 30 day, Stop date: 06/14/12 0:45:00 SUB- Q No Longer Active [facility] 05/15/2012 [facility] glucagon 1 mg, Route: IM, Drug form: PDR/INJ, PRN, PRN Blood Glucose Results, Start date: 05/15/12 0:46:00, Duration: 30 day, Stop date: 06/14/12 0:45:00 IM No Longer Active [facility] 05/15/2012 [facility] Dextrose 50% Syringe 12.5 gm, 25 mL, Route: IVP, Drug Form: INJ, PRN, PRN Blood Glucose Results, Start date: 05/15/12 0:46:00, Duration: 30 day, Stop date: 06/14/12 0:45:00 IVP No Longer Active [facility] 05/15/2012 [facility] acetaminophen 650 mg, 2 tab, Route: PO, Drug form: TAB, Q4H, PRN Pain/Fever, Start date: 05/15/12 0:36:00, Duration: 30 day, Stop date: 06/14/12 0:35:00 PO No Longer Active [facility] 05/15/2012 [facility] temazepam 15 mg, 1 cap, Route: PO, Drug form: CAP, Bedtime, PRN Insomnia, Start date: 05/15/12 0:36:00, Duration: 30 day, Stop date: 06/14/12 0:35:00 PO No Longer Active [facility] 05/15/2012 [facility] Omnipaque 350mg/ml 150 mL, Route: IVP, Drug Form: SOLN, ONCALL, STAT, Start date: 05/14/12 22:40:00, Duration: 1 doses or times, Dose=2.2ml/kg, Max [id number]=0.2ml/kg, Max [id number]=[id number] IVP No Longer Active [facility] 05/15/2012 [facility] morphine Sulfate 2 mg, 0.5 mL, Route: IVP, Drug form: INJ, ONCE, Priority: STAT, Start date: 05/14/12 22:33:00, Stop date: 05/14/12 22:33:00 IVP No Longer Active [facility] 05/15/2012 [facility] nitroglycerin 2% topical ointment 1 inch, Route: TOP, ONCE, STAT, Start date: 05/14/12 22:14:00, Stop date: 05/14/12 22:14:00 TOP No Longer Active [facility] 05/15/2012 [facility] nitroglycerin SL Tab 0.6 mg, Route: SL, ONCE, Start date: 05/14/12 22:11:00, Stop date: 05/14/12 22:11:00 SL No Longer Active [facility] 05/15/2012 [facility] NS (Bolus) IV 1,000 mL 1,000 mL, Rate: 1,000 ml/hr, Infuse over: 1 hr, Route: IV, Dosing Weight 100 kg, Total Volume: 1,000, Start date: 05/14/12 21:09:00, Duration: 30 day, Stop date: 06/13/12 21:08:00 IV No Longer Active [facility] 05/15/2012 [facility] morphine Sulfate 2 mg, 0.5 mL, Route: IVP, Drug form: INJ, ONCE, Priority: STAT, Start date: 05/14/12 20:54:00, Stop date: 05/14/12 20:54:00 IVP No Longer Active [facility] 05/15/2012 [facility] metoprolol tartrate Substitution Allowed No Longer Active 05/15/2012 [facility] metFORmin 1,000 mg, PO, BID, Substitution Allowed PO Active 05/15/2012 [facility] aspirin 81 mg tablet, enteric coated 81 mg, 1 tab, Route: PO, Drug form: ECTAB, ONCE, Priority: STAT, Start date: 05/14/12 19:58:00, Stop date: 05/14/12 19:58:00 PO No Longer Active [facility] 05/15/2012 [facility] morphine Sulfate 4 mg, 1 mL, Route: IVP, Drug form: INJ, ONCE, Priority: STAT, Start date: 05/14/12 19:58:00, Stop date: 05/14/12 19:58:00 IVP No Longer Active [facility] 05/15/2012 [facility] Allergies, Adverse Reactions, Alerts Substance Category Reaction Severity Reaction type Status Date Reported Comments Source Zocor drug allergy Allergy Active [facility] Immunizations Immunization Date Given Site Status Last Updated Comments Source pneumococcal 23-valent vaccine 05/15/2012 completed Katharina [facility] Results Order Name Results Value Reference Range Date Interpretation Comments Source BEDSIDE GLUCOSE TESTING Gluc POC Lifscn 203 70 - 99 05/17/2012 HI <sup>1</sup>Interpretive Data: Upper Reportable Limit: 200 mg/dL. [facility] BEDSIDE GLUCOSE TESTING Gluc POC Lifscn 69 70 - 99 05/17/2012 LOW <sup>2</sup>Interpretive Data: Upper Reportable Limit: 200 mg/dL. [facility] CHEMISTRY Phosphorus 4.1 2.5 - 4.5 05/17/2012 Normal [facility] CHEMISTRY Ca Ion 1.02 1.16 - 1.30 05/17/2012 LOW [facility] CHEMISTRY Ca Norm 1.04 1.16 - 1.30 05/17/2012 LOW [facility] CHEMISTRY Ca Norm mgdL 4.16 4.65 - 5.20 05/17/2012 LOW [facility] CHEMISTRY Ca Ion mgdL 4.08 4.65 - 5.20 05/17/2012 LOW [facility] CHEMISTRY Magnesium Lvl 1.7 1.8 - 2.4 05/17/2012 LOW [facility] CHEMISTRY AGAP 16.2 10.0 - 20.0 05/17/2012 Normal [facility] CHEMISTRY Calcium Lvl 8.8 8.5 - 10.5 05/17/2012 Normal [facility] CHEMISTRY CO2 23 24 - 32 05/17/2012 LOW [facility] CHEMISTRY Glucose Lvl 120 70 - 99 05/17/2012 HI <sup>5</sup>Interpretive Data: Adult reference range values reflect the clinical guidelines
of the [place] [employer]. [facility] CHEMISTRY Creatinine Lvl 0.9 0.5 - 1.4 05/17/2012 Normal [facility] CHEMISTRY Chloride Lvl 106 95 - 109 05/17/2012 Normal [facility] CHEMISTRY Potassium Lvl 4.2 3.5 - 5.1 05/17/2012 Normal <sup>4</sup>Result Comment: Specimen Slightly Hemolyzed. [facility] CHEMISTRY BUN 15 7 - 22 05/17/2012 Normal [facility] CHEMISTRY Sodium Lvl 141 135 - 145 05/17/2012 Normal [facility] HEMATOLOGY Eosinophils # 0.3 0.0 - 0.5 05/17/2012 Normal [facility] HEMATOLOGY Lymphocytes # 2.9 1.0 - 5.5 05/17/2012 Normal [facility] HEMATOLOGY Segs-Bands # 6.6 1.5 - 8.1 05/17/2012 Normal [facility] HEMATOLOGY Monocytes # 0.6 0.0 - 0.8 05/17/2012 Normal [facility] HEMATOLOGY Basophils # 0.1 0.0 - 0.2 05/17/2012 Normal [facility] HEMATOLOGY Segs 63.4 45.0 - 75.0 05/17/2012 Normal [facility] HEMATOLOGY Lymphocytes 27.5 20.0 - 40.0 05/17/2012 Normal [facility] HEMATOLOGY Eosinophils 2.8 0.0 - 4.0 05/17/2012 Normal [facility] HEMATOLOGY Monocytes 5.8 2.0 - 12.0 05/17/2012 Normal [facility] HEMATOLOGY Basophils 0.5 0.0 - 1.0 05/17/2012 Normal [facility] HEMATOLOGY MCHC 33.5 32.0 - 36.0 05/17/2012 Normal [facility] HEMATOLOGY MPV 9.1 7.4 - 10.4 05/17/2012 Normal [facility] HEMATOLOGY Platelet 196 133 - 450 05/17/2012 Normal [facility] HEMATOLOGY RDW 13.6 11.5 - 14.5 05/17/2012 Normal [facility] HEMATOLOGY Hct 39.0 42.0 - 54.0 05/17/2012 LOW [facility] HEMATOLOGY MCV 87.4 80.0 - 94.0 05/17/2012 Normal [facility] HEMATOLOGY MCH 29.3 27.0 - 31.0 05/17/2012 Normal [facility] HEMATOLOGY Hgb 13.1 14.0 - 18.0 05/17/2012 LOW [facility] HEMATOLOGY WBC 10.5 3.7 - 10.4 05/17/2012 HI [facility] HEMATOLOGY RBC 4.47 4.70 - 6.10 05/17/2012 [facility] BEDSIDE GLUCOSE TESTING Gluc POC Lifscn 134 70 - 99 05/17/2012 HI <sup>3</sup>Interpretive Data: Upper Reportable Limit: 200 mg/dL. [facility] HEMATOLOGY Plav Effect Plt 26 05/16/2012 NA [...] GP IIb/IIIa Inhibitor, e.g. ReoPro or Integrilin [facility] BEDSIDE GLUCOSE TESTING Comment1 Notify RN/MD 05/16/2012 NA [facility] CHEMISTRY Magnesium Lvl 1.7 1.8 - 2.4 05/16/2012 LOW [facility] CHEMISTRY Ca Ion 1.23 1.16 - 1.30 05/16/2012 Normal [facility] CHEMISTRY Ca Ion mgdL 4.92 4.65 - 5.20 05/16/2012 Normal [facility] CHEMISTRY Ca Norm 1.26 1.16 - 1.30 05/16/2012 Normal [facility] CHEMISTRY Ca Norm mgdL 5.04 4.65 - 5.20 05/16/2012 Normal [facility] CHEMISTRY Calcium Lvl 9.0 8.5 - 10.5 05/16/2012 Normal [facility] CHEMISTRY CO2 26 24 - 32 05/16/2012 Normal [facility] CHEMISTRY Chloride Lvl 104 95 - 109 05/16/2012 Normal [facility] CHEMISTRY Sodium Lvl 142 135 - 145 05/16/2012 Normal [facility] CHEMISTRY Creatinine Lvl 0.9 0.5 - 1.4 05/16/2012 Normal [facility] CHEMISTRY BUN 14 7 - 22 05/16/2012 Normal [facility] CHEMISTRY Potassium Lvl 4.0 3.5 - 5.1 05/16/2012 Normal [facility] CHEMISTRY Glucose Lvl 130 70 - 99 05/16/2012 HI <sup>6</sup>Interpretive Data: Adult reference range values reflect the clinical guidelines
of the [place] [employer]. [facility] CHEMISTRY AGAP 16.0 10.0 - 20.0 05/16/2012 Normal [facility] CHEMISTRY Phosphorus 4.6 2.5 - 4.5 05/16/2012 HI [facility] HEMATOLOGY Segs-Bands # 6.6 1.5 - 8.1 05/16/2012 Normal [facility] HEMATOLOGY Lymphocytes # 2.5 1.0 - 5.5 05/16/2012 Normal [facility] HEMATOLOGY Monocytes # 0.7 0.0 - 0.8 05/16/2012 Normal [facility] HEMATOLOGY Basophils 0.2 0.0 - 1.0 05/16/2012 Normal [facility] HEMATOLOGY Segs 64.8 45.0 - 75.0 05/16/2012 Normal [facility] HEMATOLOGY Eosinophils # 0.3 0.0 - 0.5 05/16/2012 Normal [facility] HEMATOLOGY Basophils # 0.0 0.0 - 0.2 05/16/2012 Normal [facility] HEMATOLOGY Lymphocytes 24.5 20.0 - 40.0 05/16/2012 [facility] HEMATOLOGY Monocytes 7.1 2.0 - 12.0 05/16/2012 [facility] HEMATOLOGY Eosinophils 3.4 0.0 - 4.0 05/16/2012 [facility] HEMATOLOGY MCV 87.7 80.0 - 94.0 05/16/2012 [facility] HEMATOLOGY MCHC 33.5 32.0 - 36.0 05/16/2012 [facility] HEMATOLOGY RDW 13.4 11.5 - 14.5 05/16/2012 [facility] HEMATOLOGY MCH 29.4 27.0 - 31.0 05/16/2012 [facility] HEMATOLOGY Platelet 200 133 - 450 05/16/2012 [facility] HEMATOLOGY MPV 9.1 7.4 - 10.4 05/16/2012 [facility] HEMATOLOGY WBC 10.2 3.7 - 10.4 05/16/2012 [facility] HEMATOLOGY RBC 4.36 4.70 - 6.10 05/16/2012 [facility] HEMATOLOGY Hct 38.2 42.0 - 54.0 05/16/2012 [facility] HEMATOLOGY Hgb 12.8 14.0 - 18.0 05/16/2012 [facility] BEDSIDE GLUCOSE TESTING Comment1 Notify RN/ 05/16/2012 [facility] CHEMISTRY U Phencyc Scr Negative *NA* (05/15/2012 10:23:00) Negative 05/15/2012 [facility] CHEMISTRY UDS Note See Note 14 (05/15/2012 [...] 300 ng/ mL
Urine alcohol 20 mg/dL [facility] CHEMISTRY U Opiate Scr Positive *ABN* (05/15/2012 10:23:00) Negative 05/15/2012 ABN [facility] CHEMISTRY U Cannab Scr Negative *NA* (05/15/2012 10:23:00) Negative 05/15/2012 NA [facility] CHEMISTRY U Benzodia Scr Negative *NA* (05/15/2012 10:23:00) Negative 05/15/2012 [facility] CHEMISTRY U Cocaine Scr Negative *NA* (05/15/2012 10:23:00) Negative 05/15/2012 NA [facility] CHEMISTRY U Amph Scr Negative *NA* (05/15/2012 10:23:00) Negative 05/15/2012 [facility] CHEMISTRY U Adilene Scr Negative *NA* (05/15/2012 10:23:00) Negative 05/15/2012 NA [facility] CHEMISTRY U Propoxyph Scr Negative *NA* (05/15/2012 10:23:00) Negative 05/15/2012 [facility] CHEMISTRY U Methadone Scr Negative *NA* (05/15/2012 10:23:00) Negative 05/15/2012 [facility] HEMATOLOGY PTT 44.9 22.9 - 35.8 05/15/2012 HI <sup>16</sup>Interpretive Data: Heparin Therapeutic Range: 57 - 92 Seconds [facility] BEDSIDE GLUCOSE TESTING Comment1 Notify RN/ 05/15/2012 [facility] CHEMISTRY Troponin-T 0.128 0.000 - 0.100 05/15/2012 CRIT <sup>8</sup>Result Comment: Critical Result(s) called to Day Desai at 05/15/2012 08:16:05 CDT by Melvin. Read back OK. [facility] CHEMISTRY Total CK 259 12 - 191 05/15/2012 [facility] CHEMISTRY Troponin-I 2.72 0.00 - 0.40 05/15/2012 CRIT <sup>10</sup>Result Comment: Critical Result(s) called to day katharina at 05/15/2012 08:10:32 CDT by mlban. Read back OK. [facility] CHEMISTRY Hgb A1C 7.6 05/15/2012 NA <sup>13</sup>Interpretive [...] 240 Poor Control, take action to lower [facility] CHEMISTRY CK MB Index 6.8 0.0 - 2.5 05/15/2012 [facility] CHEMISTRY CK MB 17.6 0.5 - 3.6 05/15/2012 [facility] HEMATOLOGY Lymphocytes # 3.8 1.0 - 5.5 05/15/2012 [facility] HEMATOLOGY Segs-Bands # 6.2 1.5 - 8.1 05/15/2012 [facility] HEMATOLOGY Basophils 0.5 0.0 - 1.0 05/15/2012 [facility] HEMATOLOGY Eosinophils 2.7 0.0 - 4.0 05/15/2012 [facility] HEMATOLOGY Monocytes 6.1 2.0 - 12.0 05/15/2012 Normal [facility] HEMATOLOGY Basophils # 0.1 0.0 - 0.2 05/15/2012 [facility] HEMATOLOGY Eosinophils # 0.3 0.0 - 0.5 05/15/2012 [facility] HEMATOLOGY Monocytes # 0.7 0.0 - 0.8 05/15/2012 [facility] HEMATOLOGY Lymphocytes 34.4 20.0 - 40.0 05/15/2012 Normal [facility] HEMATOLOGY Segs 56.3 45.0 - 75.0 05/15/2012 Normal [facility] HEMATOLOGY RBC 4.04 4.70 - 6.10 05/15/2012 [facility] HEMATOLOGY MCHC 34.0 32.0 - 36.0 05/15/2012 Normal [facility] HEMATOLOGY MCH 29.7 27.0 - 31.0 05/15/2012 Normal [facility] HEMATOLOGY MCV 87.4 80.0 - 94.0 05/15/2012 Normal [facility] HEMATOLOGY Hct 35.4 42.0 - 54.0 05/15/2012 [facility] HEMATOLOGY Hgb 12.0 14.0 - 18.0 05/15/2012 [facility] HEMATOLOGY RDW 13.7 11.5 - 14.5 05/15/2012 Normal [facility] HEMATOLOGY MPV 9.1 7.4 - 10.4 05/15/2012 Normal [facility] HEMATOLOGY Platelet 195 133 - 450 05/15/2012 Normal [facility] HEMATOLOGY WBC 11.1 3.7 - 10.4 05/15/2012 HI [facility] HEMATOLOGY PTT 31.0 22.9 - 35.8 05/15/2012 Normal <sup>17</sup>Interpretive Data: Heparin Therapeutic Range: 57 - 92 Seconds [facility] HEMATOLOGY INR 1.05 0.85 - 1.17 05/15/2012 Normal <sup>15</sup>Interpretive Data: RECOMMENDED RANGES FOR PROTIME INR:
2.0-3.0 for most medical and surgical thromboembolic states.
2.5-3.5 for artificial heart valves and recurrent embolism.

INR SHOULD BE USED ONLY FOR PATIENTS ON STABLE ANTICOAGULANT THERAPY. [facility] HEMATOLOGY PT 13.7 12.0 - 14.7 05/15/2012 Normal [facility] CHEMISTRY Ca Ion mgdL 4.60 4.65 - 5.20 05/15/2012 [facility] CHEMISTRY Ca Norm 1.18 1.16 - 1.30 05/15/2012 Normal [facility] CHEMISTRY Ca Norm mgdL 4.72 4.65 - 5.20 05/15/2012 Normal [facility] CHEMISTRY Ca Ion 1.15 1.16 - 1.30 05/15/2012 LOW [facility] CHEMISTRY Phosphorus 3.6 2.5 - 4.5 05/15/2012 Normal [facility] CHEMISTRY Magnesium Lvl 1.5 1.8 - 2.4 05/15/2012 LOW [facility] CHEMISTRY AGAP 17.0 10.0 - 20.0 05/15/2012 Normal [facility] CHEMISTRY Calcium Lvl 8.4 8.5 - 10.5 05/15/2012 LOW [facility] CHEMISTRY CO2 23 24 - 32 05/15/2012 LOW [facility] CHEMISTRY Chloride Lvl 105 95 - 109 05/15/2012 Normal [facility] CHEMISTRY Potassium Lvl 4.0 3.5 - 5.1 05/15/2012 Normal [facility] CHEMISTRY Sodium Lvl 141 135 - 145 05/15/2012 Normal [facility] CHEMISTRY Creatinine Lvl 0.9 0.5 - 1.4 05/15/2012 Normal [facility] CHEMISTRY BUN 13 7 - 22 05/15/2012 Normal [facility] CHEMISTRY Glucose Lvl 117 70 - 99 05/15/2012 HI <sup>7</sup>Interpretive Data: Adult reference range values reflect the clinical guidelines
of the [place] [employer]. [facility] CHEMISTRY Troponin-T 0.148 0.000 - 0.100 05/15/2012 CRIT <sup>9</sup>Result Comment: Critical Result(s) called to Dacia Weiss at _05/15/2012 02:58:06 CDT [place] [place] Read back OK. [facility] CHEMISTRY Troponin-I 2.91 0.00 - 0.40 05/15/2012 CRIT <sup>11</sup>Result Comment: Critical Result(s) called to cherelle ray at 05/15/2012 02:34:53 CDT bydrake. Read back OK. [facility] CHEMISTRY Total CK 252 12 - 191 05/15/2012 HI [facility] CHEMISTRY LDL 78 0 - 129 05/15/2012 Normal [facility] CHEMISTRY Chol 147 120 - 200 05/15/2012 Normal [facility] CHEMISTRY HDL 42 >=35 05/15/2012 Normal [facility] CHEMISTRY Trig 133 0 - 200 05/15/2012 Normal [facility] CHEMISTRY CHD Risk 3.50 4.00 - 7.30 05/15/2012 LOW [facility] CHEMISTRY TSH 2.780 0.360 - 3.740 05/15/2012 Normal [facility] CHEMISTRY CK MB 18.9 0.5 - 3.6 05/15/2012 [facility] CHEMISTRY CK MB Index 7.5 0.0 - 2.5 05/15/2012 [facility] CHEMISTRY Bili Total 0.4 0.2 - 1.3 05/15/2012 Normal [facility] CHEMISTRY Alk Phos 115 39 - 136 05/15/2012 Normal [facility] CHEMISTRY AST 40 0 - 37 05/15/2012 [facility] CHEMISTRY Total Protein 7.8 6.4 - 8.4 05/15/2012 Normal [facility] CHEMISTRY Albumin Lvl 4.3 3.5 - 5.0 05/15/2012 Normal [facility] CHEMISTRY ALT 46 0 - 65 05/15/2012 Normal [facility] CHEMISTRY B/C Ratio 13 6 - 25 05/15/2012 Normal [facility] CHEMISTRY Globulin 3.5 2.0 - 4.0 05/15/2012 Normal [facility] CHEMISTRY A/G Ratio 1.2 0.7 - 1.6 05/15/2012 Normal [facility] CHEMISTRY Troponin-I 1.62 0.00 - 0.40 05/15/2012 CRIT <sup>12</sup>Result Comment: Critical Result(s) called to Shae Pena at _05/14/2012 21:30:13 CDT by_fcl. Read back OK. [facility] CHEMISTRY Myoglobin 82 25 - 72 05/15/2012 [facility] CHEMISTRY Troponin-T 0.092 0.000 - 0.100 05/15/2012 Normal [facility] CHEMISTRY Total CK 239 12 - 191 05/15/2012 [facility] CHEMISTRY CK MB Index 7.0 0.0 - 2.5 05/15/2012 [facility] CHEMISTRY CK MB 16.8 0.5 - 3.6 05/15/2012 [facility] Pathology Reports No Data Provided for This Section Diagnostic Reports No Data Provided for This Section Consultation Notes No Data Provided for This Section Discharge Summaries No Data Provided for This Section History and Physicals No Data Provided for This Section Vital Signs Vital Sign Value Date Comments Source Diastolic (mm Hg) 75 05/17/2012 [facility] Systolic (mm Hg) 107 05/17/2012 [facility] Diastolic (mm Hg) 60 05/17/2012 [facility] Systolic (mm Hg) 110 05/17/2012 [facility] Temperature Oral (F) 97.3 F 05/17/2012 [facility] Diastolic (mm Hg) 78 05/17/2012 [facility] Systolic (mm Hg) 112 05/17/2012 [facility] Temperature Oral (F) 97.8 F 05/17/2012 [facility] Temperature Oral (F) 98.2 F 05/17/2012 [facility] Respitory Rate 20 05/16/2012 [facility] Respitory Rate 20 05/16/2012 [facility] Respitory Rate 20 05/16/2012 [facility] Weight 81.4 05/15/2012 [facility] Weight 104.347 05/15/2012 [facility] Height 170.18 cm 05/15/2012 [facility] Height 170.18 cm 05/15/2012 [facility] Weight 104.091 05/15/2012 [facility] Height 170.18 cm 05/14/2012 [facility] Encounters Location Location Details Encounter Type Encounter Number Reason For Visit Attending Provider ADM Date DC Date Status Source [facility] Inpatient [id number] CHEST PAIN TYPICAL ALI DENKTAS 05/14/2012 05/17/2012 Active [facility] Outpatient [id number] Marcus Jeffries 07/26/2019 Active [facility] Procedures No Data Provided for This Section [...]
--- NOTE | 2019-07-04 16:30 | NUR ---
pt arrive with his Weapon (Gun). 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
[2019-07-04 17:03] VITALS: BP 166/81
[2019-07-04 19:20] VITALS: BP 151/79
[2019-07-04 19:24] VITALS: BP 151/79
--- NOTE | 2019-07-04 19:24 | NUR ---
PT IS RESTING IN BED. RESPIRATION IS EVEN AND UNLABORED, NO DISTRESS NOTED. BED IN THE LOWEST POSITION, LOCKED, AND CALL LIGHT WITHIN REACH. WILL CONTINUE TO MONITOR.
[2019-07-04] MEDS ORDERED: CLOPIDOGREL75 MG PO (22:47)
[2019-07-04] MEDS ORDERED: LOSARTAN POTASS25 MG (22:47)
[2019-07-04] MEDS ORDERED: METOPROLOL SUCC25 MG (22:47)
[2019-07-04] MEDS ORDERED: PANTOPRAZOLE SO40 MG PO (22:47)
[2019-07-04] MEDS ORDERED: METFORMIN HCL500 MG PO (22:47)
[2019-07-04] MEDS ORDERED: GLIMEPIRIDE2 MG PO (22:47)
[2019-07-04] MEDS ORDERED: PRAVASTATIN SOD40 MG (22:47)
[2019-07-04] MEDS ORDERED: ASPIR-LOW81 MG (22:47)
[2019-07-04 23:14] VITALS: BP 151/79
[2019-07-05] VITALS (9 sets, daily range): BP systolic 149–201; BP diastolic 73–96
[2019-07-05] MEDS ORDERED: SODIUM CHLORIDE 0.9% 250ML 250 ML ONE (01:51)
[2019-07-05] MEDS: CEFTRIAXONE SOD 1 GM/NS 50 ML 50 ML IV SCH ×2 (01:57→13:28)
[2019-07-05] MEDS: LACTATED RINGER'S 1,000 ML IV SCH ×2 (06:35→17:35)
[2019-07-05] MEDS: MORPHINE SULFATE INJ 4 MG/ML INJ 1ML IV PRN ×3 (06:53→14:26)
[2019-07-05] MEDS: ONDANSETRON HCL INJ 2MG/ML 2ML 2 MG/ML VIAL IV PRN ×3 (06:54→17:31)
--- NOTE | 2019-07-05 07:23 | NUR ---
Received bedside report from night nurse. Patient resting in bed, no signs of distress or c/o pain at this time. All safety measures in place. Will continue to monitor.
[2019-07-05] MEDS: INSULIN REGULAR, HUMAN 100 UNIT/1 ML 3ML VIAL SQ SCH ×4 (07:30→20:01)
--- NOTE | 2019-07-05 08:09 | NUR ---
Paged Dr. Hung regarding patient's elevated blood pressure. Awaiting return call. Will continue to monitor patient.
[2019-07-05 09:49] LABS: HEMATOCRIT 34.5 % (38.2-49.6); HEMOGLOBIN 11.4 g/dL (14.0-18.0); MEAN CORPUSCULAR HEMOGLOBIN 28.9 pg (28-32); MEAN CORPUSCULAR VOLUME 87.6 fL (81-99); PLATELET COUNT 260 x10e3/uL (140-360); RED BLOOD COUNT 3.94 x10e6/uL (4.3-5.7)
[2019-07-05 10:06] LABS: CALCIUM 9.1 mg/dL (8.4-10.2); CREATININE, SERUM 1.37 mg/dL (0.72-1.25)
[2019-07-05] MEDS: PANTOPRAZOLE SOD 40 MG TABEC PO SCH (11:17)
[2019-07-05] MEDS: CLOPIDOGREL BISULFATE 75 MG TAB PO SCH (11:17)
[2019-07-05] MEDS: METOPROLOL SUCCINATE 25 MG TAB XL PO SCH (11:17)
[2019-07-05] MEDS: ASPIRIN 81 MG CHEW TAB PO SCH (11:17)
[2019-07-05] MEDS: LOSARTAN POTASSIUM 25 MG TAB PO SCH ×2 (11:17→17:22)
[2019-07-05] MEDS: CLONIDINE HCL 0.1 MG TAB PO PRN (15:57)
[2019-07-05] MEDS: HYDROMORPHONE 1MG/1ML INJ IV PRN ×2 (15:57→20:28)
--- NOTE | 2019-07-05 19:00 | NUR ---
Patient leaving unit for KUB. In stable condition.
--- NOTE | 2019-07-05 19:05 | NUR ---
Patient visited in room during nursing rounds. Patient alert and oriented x3. On IVF (LR at 100ml/hr). Pt has intermittent pain on lower abd and lower back. Pt being medicated accordingly. Call pandey within reach.
--- NOTE | 2019-07-05 19:20 | NUR ---
Patient returned from KUB. Bedside report given to night nurse. No signs of distress at this time. All safety measures in place.
--- NOTE | 2019-07-05 19:58 | Diagnostic Imaging Report ---
Exam: KUB. Clinical History: Kidney stone Comparison: CT scan 07/04/2019 Findings: Frontal view of the abdomen demonstrates a nonobstructive bowel gas pattern with moderate retained stool. 8 mm stone over the mid right sacrum..No acute bone abnormality Impression: 8 mm stone over the mid right sacrum. Signed by: Dr. Booker Shabazz M.D. on 07/05/2019 7:24 PM
[2019-07-05] MEDS: PRAVASTATIN 20 MG TAB PO SCH (20:20)
[2019-07-06] VITALS (8 sets, daily range): BP systolic 152–201; BP diastolic 82–89
[2019-07-06] MEDS: LACTATED RINGER'S 1,000 ML IV SCH ×3 (01:50→22:10)
[2019-07-06] MEDS: CEFTRIAXONE SOD 1 GM/NS 50 ML 50 ML IV SCH ×2 (02:00→13:57)
--- NOTE | 2019-07-06 07:15 | NUR ---
Received bedside report from night nurse. Patient resting in bed, no signs of distress at this time. All safety measures in place. Will continue to monitor.
[2019-07-06] MEDS: METOPROLOL SUCCINATE 25 MG TAB XL PO SCH (08:09)
[2019-07-06] MEDS: LOSARTAN POTASSIUM 25 MG TAB PO SCH ×2 (08:09→18:05)
[2019-07-06] MEDS: PANTOPRAZOLE SOD 40 MG TABEC PO SCH (08:09)
[2019-07-06] MEDS: HYDROMORPHONE 1MG/1ML INJ IV PRN ×4 (08:09→20:29)
[2019-07-06] MEDS: ASPIRIN 81 MG CHEW TAB PO SCH (08:09)
[2019-07-06] MEDS: CLOPIDOGREL BISULFATE 75 MG TAB PO SCH (08:09)
[2019-07-06] MEDS: INSULIN REGULAR, HUMAN 100 UNIT/1 ML 3ML VIAL SQ SCH ×4 (08:10→21:00)
--- NOTE | 2019-07-06 11:16 | Progress Note ---
DATE: 07/06/2019 SUBJECTIVE: Mr. Camacho is a 63-year-old man with history of coronary artery disease, hypertension, diabetes, and hyperlipidemia, who came to the emergency room complaining of few days history of right-sided back pain, radiated to the front with some nausea. The patient stated the pain was severe, so he decided to come to the emergency room. He was found to have a stone on the right side. He has been seen by urologist. PHYSICAL EXAMINATION: GENERAL: Today, he is awake and alert. VITAL SIGNS: Temperature is 97.3 and blood pressure 169/87. HEART: Regular rate. LUNGS: Clear to auscultation. ABDOMEN: Distended. He still has some tenderness in the right flank area. LABORATORY DATA: On the blood work, white count went down to 12.49, hemoglobin is 11.4, and hematocrit 34.5. Blood sugar today was 165 and potassium 4.0. Urine culture preliminary results negative. Abdominal CT show right kidney stone and mild hydronephrosis. Abdominal x-ray shows the stone is over the medial right sacrum, so it seems that he is slowly going down. ASSESSMENT AND PLAN: 1. Right nephrolithiasis. 2. Right mild hydronephrosis. 3. Uncontrolled hypertension. 4. 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 5. Chronic kidney disease, stage 3. 6. Hyperlipidemia. 7. Coronary artery disease, status post stent. PLAN: At present time is to continue ADA diet and sliding scale with insulin. Continue blood pressure medications. He is on IV fluids. We switched the morphine to Dilaudid since the patient was having pain that was not controlled by morphine. Continue nausea medication as needed. All this was discussed with the patient. All questions were answered to satisfaction. The Urology sees the patient today and will continue to follow him. MD HOLLEY Hurtado/MODL /[id number]
[2019-07-06] MEDS: CLONIDINE HCL 0.1 MG TAB PO PRN (11:56)
[2019-07-06] MEDS: TRIAMCINOLONE 0.1% OINTMENT 15 GM TUBE TP SCH (16:53)
[2019-07-06] MEDS: NYSTATIN 100,000 UNITS/GM CRM 30GM TUBE TOP SCH (16:53)
[2019-07-06] MEDS: PRAVASTATIN 20 MG TAB PO SCH (20:20)
[2019-07-07] VITALS (8 sets, daily range): BP systolic 135–189; BP diastolic 78–97
[2019-07-07] MEDS: CEFTRIAXONE SOD 1 GM/NS 50 ML 50 ML IV SCH ×2 (02:00→14:23)
[2019-07-07] MEDS: HYDROMORPHONE 1MG/1ML INJ IV PRN ×2 (02:00→06:06)
--- NOTE | 2019-07-07 07:00 | NUR ---
received am report from RN and morning rounds done. pt is alert resting in bed, no s/s of distress. call light is within reach and instructed pt to call nurse for help. is at the bedside
[2019-07-07] MEDS: ASPIRIN 81 MG CHEW TAB PO SCH (08:42)
[2019-07-07] MEDS: CLOPIDOGREL BISULFATE 75 MG TAB PO SCH (08:42)
[2019-07-07] MEDS: PANTOPRAZOLE SOD 40 MG TABEC PO SCH (08:52)
[2019-07-07] MEDS: LOSARTAN POTASSIUM 25 MG TAB PO SCH ×2 (08:52→17:39)
[2019-07-07] MEDS: METOPROLOL SUCCINATE 25 MG TAB XL PO SCH (08:52)
[2019-07-07] MEDS: LACTATED RINGER'S 1,000 ML IV SCH ×2 (08:57→18:15)
[2019-07-07] MEDS: TRIAMCINOLONE 0.1% OINTMENT 15 GM TUBE TP SCH ×2 (08:58→17:39)
[2019-07-07] MEDS: NYSTATIN 100,000 UNITS/GM CRM 30GM TUBE TOP SCH ×2 (08:58→17:39)
[2019-07-07] MEDS: INSULIN REGULAR, HUMAN 100 UNIT/1 ML 3ML VIAL SQ SCH ×4 (09:05→21:00)
[2019-07-07] MEDS ORDERED: IOPAMIDOL 610MG/1ML 300 MG/ML VIAL IV ONE (10:10)
[2019-07-07] MEDS ORDERED: MIDAZOLAM HCL 2 MG/2 ML VIAL ONE (15:13)
[2019-07-07] MEDS ORDERED: FENTANYL CITRATE/PF 100MCG/2 ML INJ ONE (15:13)
[2019-07-07] MEDS ORDERED: DEXAMETHASONE SOD PHOS INJ 4 MG/ML VIAL ONE (18:06)
[2019-07-07] MEDS ORDERED: ONDANSETRON HCL INJ 2MG/ML 2ML 2 MG/ML VIAL ONE (18:06)
[2019-07-07] MEDS ORDERED: SEVOFLURANE INHAL SOLN 250 ML PEN BTL ONE (18:06)
[2019-07-07] MEDS ORDERED: LIDOCAINE HCL 2% LOCAL INJ 5 ML SDV VIAL INJ ONE (18:06)
[2019-07-07] MEDS ORDERED: PROPOFOL IV EMULSION 10 MG/ML 20 ML VIAL ONE (18:06)
[2019-07-07] MEDS: PRAVASTATIN 20 MG TAB PO SCH (20:48)
[2019-07-08 00:06] VITALS: BP 134/84
[2019-07-08] MEDS: CEFTRIAXONE SOD 1 GM/NS 50 ML 50 ML IV SCH (02:07)
[2019-07-08] MEDS: LACTATED RINGER'S 1,000 ML IV SCH (04:15)
[2019-07-08 06:03] VITALS: BP 155/85
--- NOTE | 2019-07-08 07:02 | Discharge Summary ---
HISTORY: Mr. Camacho is a 63-year-old male with history of coronary artery disease, hypertension, diabetes, and hyperlipidemia, who came to the emergency room complaining of right-sided back pain and nausea. He was found to have a kidney stone that he has not passed. He is going to go for a cystoscopy and a stent placement today, and with the urologist, he is going to be discharged home. PHYSICAL EXAMINATION: GENERAL: He is awake and alert. VITAL SIGNS: Temperature is 97 and blood pressure 155/80. HEART: Regular rate. LUNGS: Clear to auscultation. ABDOMEN: Distended and soft. LABORATORY DATA: On the blood work, potassium 4.0, creatinine 1.37, and glucose 197. White count 12.4, hemoglobin 11.4, and hematocrit 34.5. CAT scan showed the right kidney stone with mild hydronephrosis. ASSESSMENT AND PLAN: 1. Right nephrolithiasis. 2. Right mild hydronephrosis. 3. Uncontrolled hypertension. 4. 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 5. Chronic kidney disease, stage 3. 6. Hyperlipidemia. 7. Coronary artery disease, status post stent. PLAN: At present time is to continue ADA diet, sliding scale with insulin and pain control. If the patient goes for the procedure today and if it is okay with a urologist, he is going to be discharged home, to be follow up as an outpatient. All this was discussed in detail with the patient. All questions were answered to satisfaction. Please see home medication reconciliation list. MD HOLLEY Hurtado/ABDULAZIZ /[id number]
--- NOTE | 2019-07-08 07:18 | NUR ---
Received patient lying in bed with eyes open. Respiration even and unlabored without SOB. Call light in reach.
[2019-07-08] MEDS: INSULIN REGULAR, HUMAN 100 UNIT/1 ML 3ML VIAL SQ SCH (08:20)
[2019-07-08] MEDS: ASPIRIN 81 MG CHEW TAB PO SCH (08:27)
[2019-07-08] MEDS: LOSARTAN POTASSIUM 25 MG TAB PO SCH (08:27)
[2019-07-08] MEDS: PANTOPRAZOLE SOD 40 MG TABEC PO SCH (08:27)
[2019-07-08] MEDS: CLOPIDOGREL BISULFATE 75 MG TAB PO SCH (08:28)
[2019-07-08] MEDS: METOPROLOL SUCCINATE 25 MG TAB XL PO SCH (08:28)
[2019-07-08] MEDS: NYSTATIN 100,000 UNITS/GM CRM 30GM TUBE TOP SCH (08:28)
[2019-07-08] MEDS: TRIAMCINOLONE 0.1% OINTMENT 15 GM TUBE TP SCH (08:28)
[2019-07-08 08:36] VITALS: BP 150/91
[2019-07-08 09:17] VITALS: BP 150/91
[2019-07-08] MEDS ORDERED: BACTRIM DS TAB1 EACH PO (11:15)
[2019-07-08] MEDS ORDERED: TYLENOL WITH C1 EACH PO (11:15)
[2019-07-08 11:29] VITALS: BP 160/96
--- NOTE | 2019-07-08 12:48 | NUR ---
IV line to right hand discontinued, catheter tip intact, no bleeding noted.
--- NOTE | 2019-07-08 12:50 | NUR ---
Patient is to be discharge to home today. Transported via wheelchair to private vehicle. Belongings are with patient's spouse. Respiration even and unlabored without SOB.
--- NOTE | 2019-07-09 12:44 | Consultation ---
DATE OF CONSULTATION: Urologic Consultation Consultation is called by Dr. Hung. CHIEF UROLOGIC COMPLAINT AND REASON FOR CONSULTATION: Gross hematuria, kidney stones. HISTORY OF PRESENT ILLNESS: Mr. Camacho is a 63-year-old male in normal state of health, began experiencing sharp severe 10/10 right-sided flank pain and gross hematuria. Denied fevers or chills. Denied nausea or vomiting. PAST MEDICAL HISTORY: Significant for hypertension, diabetes, hyperlipidemia, myocardial infarction, right elbow dislocation. MEDICATIONS: Please see MAR. Most notable for aspirin, Plavix. ALLERGIES: SIMVASTATIN. SOCIAL HISTORY: Denied smoking or drinking. FAMILY HISTORY: Denied urologic stones or malignancies. REVIEW OF SYSTEMS: Noncontributory other than problems mentioned above for 12 organ systems. PHYSICAL EXAMINATION: GENERAL: Middle-aged male, in no acute distress. VITAL SIGNS: Temperature 96.5, pulse 61, respirations 24, blood pressure 196/87. HEENT: Sclerae anicteric. NECK: Supple. BACK: Without costovertebral angle tenderness bilaterally. ABDOMEN: Soft. It is nontender. It is nondistended. No palpable mass. No palpable hernias. No palpable lymphadenopathy. : Normal external genitalia. EXTREMITIES: Without edema. NEUROLOGIC: Moves all 4 extremities. PSYCH: Alert and appropriate. SKIN: Intact, normal color. PERTINENT LABORATORY DATA: CT scan revealing an 8 mm right mid ureteral stone, right hydronephrosis. Hemoglobin 12, hematocrit 30, platelet count 329,000, white cell count 19,000. Urinalysis 6-10 reds, zero whites, 1+ glucose. Sodium 138, potassium 3.7, chloride 104, bicarb 19, BUN 23, creatinine 1.1, glucose 180. IMPRESSION: 1. Right ureteral calculus. 2. Right hydronephrosis. 3. Leukocytosis. 4. Gross hematuria. 5. Glycosuria. 6. Acute renal failure. 7. Hypertension. 8. Renal colic. PLAN: We will employ a brief trial of passage. Should this fail, the patient will likely need stenting. Thank you for allowing me to participate in care of the patient. We will be happy to follow along with you. Mg Obrien MD ES/MODL /[id number] cc: Areli Hung MD
--- NOTE | 2019-07-09 19:26 | Operative Report ---
DATE OF PROCEDURE: 07/07/2019 SURGEON: Mg Obrien MD PREOPERATIVE DIAGNOSES: 1. Microscopic hematuria. 2. Right-sided hydronephrosis. POSTOPERATIVE DIAGNOSES: 1. Microscopic hematuria. 2. Right-sided hydronephrosis. PROCEDURES: 1. Cystourethroscopy with left ureteral catheterization and left retrograde pyelogram (entirely separate procedure for diagnosis of microscopic hematuria). 2. Cystourethroscopy with insertion of a right indwelling stent (entirely separate procedure for diagnosis of right hydronephrosis). 3. Supervision of fluoroscopy. 4. Interpretation of retrograde ureteropyelography. ANESTHESIA: General. ESTIMATED BLOOD LOSS: Minimal. COMPLICATIONS: None. INDICATIONS FOR PROCEDURE: Mr. Camacho is a 63-year-old male with failure of passage of right 8 mm ureteral stone. He and I had a long discussion about alternatives, risks, and benefits of doing nothing, stent placement, and nephrostomy. He voiced understanding of options, alternatives, risks, and benefits, and elected to proceed with stent. PROCEDURE IN DETAIL: After informed consent was obtained, the patient was taken to the operative suite, placed supine on the operating table, underwent general anesthesia by the Anesthesia Service. He was placed in the dorsal lithotomy position, sterilely prepped and draped in standard fashion for cystoscopy. A 21-Georgian cystoscope was inserted per urethra. There was trilobar prostatic hypertrophy. Panendoscopy of the bladder, no tumors and no stones. Both ureteral orifices were normal in location, only the left was seen to efflux urine. Bilateral retrograde pyelogram performed, the left was normal and the right revealed an 8 mm mid ureteral filling defect with proximal hydronephrosis on the right; guidewire was inserted. A 7 x 26 ureteral stent was deployed with a coil in the renal pelvis and a coil in the bladder. The patient's bladder was drained. He was awakened from anesthesia and transferred to the recovery room in excellent condition. Supervision of fluoroscopy, interpretation of retrograde pyelography: I was present for the entire procedure and supervised fluoroscopy. There was no radiologist present. Attention was turned to the left and right ureteral orifices, which were catheterized. Retrograde pyelogram was performed on the left side revealed a delicate pelvocaliceal system; on the right side revealed an 8 mm mid ureteral filling defect with proximal hydronephrosis. Postoperative views on the right side revealed stent in adequate position. MD BAKARI Sunshine/ABDULAZIZ /[id number] cc: Areli Hung MD
== END 2019-07-08 12:50 | disposition home or self-care (01) | DRG 661 ==
LOC: ER 10:46 → ERHOLD 15:03 → MED/SURG2 16:01 → OBSVTOIN 07-06 09:40
PROVIDERS: ADMIT Internal Medicine; ATTEND Internal Medicine
PROC: 0T768DZ Dilation of Right Ureter with Intraluminal Device, Via Natural or Artificial Opening Endoscopic (ICD-10-PCS; principal; 2019-07-07 10:21)
PROC: BT141ZZ Fluoroscopy of Kidneys, Ureters and Bladder using Low Osmolar Contrast (ICD-10-PCS; 2019-07-07 10:21)
DX: N13.2 Hydronephrosis with renal and ureteral calculous obstruction (principal); E11.22 Type 2 diabetes mellitus with diabetic chronic kidney disease; I12.9 Hypertensive chronic kidney disease with stage 1 through stage 4 chronic kidney disease, or unspecified chronic kidney disease; N18.3 Chronic kidney disease, stage 3 (moderate); E78.5 Hyperlipidemia, unspecified; I25.10 Atherosclerotic heart disease of native coronary artery without angina pectoris; N17.9 Acute kidney failure, unspecified; N40.0 Benign prostatic hyperplasia without lower urinary tract symptoms; D64.9 Anemia, unspecified; Z95.5 Presence of coronary angioplasty implant and graft; Z85.9 Personal history of malignant neoplasm, unspecified; Z79.84 Long term (current) use of oral hypoglycemic drugs; Z79.02 Long term (current) use of antithrombotics/antiplatelets; Z79.82 Long term (current) use of aspirin
CPT/HCPCS: 36415; 71045; 74018; 74176; 74420; 80048; 80053; 81001; 82150; 82550; 82553; 82948; 83690; 83735; 83880; 84484; 85007; 85025; 85027; 87086; 93005; 96372; 99284; C1758; C2617; G0378; J0696; J1100; J1170; J1817; J1885; J2001; J2250; J2270; J2405; J3010; J7030; J7050; J7121

== ENCOUNTER → 2019-07-14 | Day surgery (SDC) | payer OTHER ==
[~2019-07-14] MED LIST: ASPIR-LOW81 MG; BACTRIM DS TAB1 EACH PO; CEFTRIAXONE SOD 1 GM/NS 50 ML 50 ML IV ONE; CLOPIDOGREL75 MG PO; DEXAMETHASONE SOD PHOS INJ 4 MG/ML VIAL ONE; EPHEDRINE SULFATE INJ 50 MG/10 ML SYR ONE; FENTANYL CITRATE/PF 100MCG/2 ML INJ ONE; GLIMEPIRIDE2 MG PO; IOPAMIDOL 300 MG/ML 15ML VIAL IT ONE; LIDOCAINE HCL 2% LOCAL INJ 5 ML SDV VIAL INJ ONE; LOSARTAN POTASS25 MG; METFORMIN HCL500 MG PO; METOPROLOL SUCC25 MG; ONDANSETRON HCL INJ 2MG/ML 2ML 2 MG/ML VIAL ONE; PANTOPRAZOLE SO40 MG PO; PRAVASTATIN SOD40 MG; PROPOFOL IV EMULSION 10 MG/ML 20 ML VIAL ONE; SEVOFLURANE INHAL SOLN 250 ML PEN BTL ONE; TYLENOL WITH C1 EACH PO
--- OUTSIDE RECORDS SUMMARY | 2019-07-14 07:33 | XMS REPORT | Clinical Summary ---
Author Author [employer] [facility] [employer] Address Unknown Phone Unavailable Care Team Providers Care Video Player Mechanic Name Role Phone Asked, No Pcp PCP Unavailable Allergies Not on File Medications Not on file Active Problems Not on file Encounters Care Team Description Date Type Specialty Diane Gaitan MD Routine medical exam (Primary Dx) 05/24/2019 [facility] [employer] [facility] after 07/13/2018 Social History Date Tobacco Use Types Packs/Day [...] Routine medical exam 10:27 AM CDT after 07/13/2018 Results * Wellness event QFT (05/24/2019 10:27 AM CDT) [facility] Quantiferon TB NEGATIVE [facility] gold plus Comment: Interpretive Data: [...] tuberculosis Infection --- [place], 2010 (http://www.cdc.gov/mmwr/previ ew/mmwrhtml/em6900z2.htm), for more information concerning test performance in low-prevalence populations and use in occupational screening. Quantiferon 0.10 0.00 - 0.34 IU/mL [facility] plus TB1 minus NIL Quantiferon 0.16 0.00 - 0.34 IU/mL [facility] plus TB2 minus NIL Quantiferon 8.25 IU/mL [facility] mitogen minus NIL Quantiferon NIL 0.02 IU/mL [facility] Comment: Performed by [facility], [address] [place] [address] [email or web address], Emigdio Gilmore MD - Lab. Director Specimen Serum Performing Organization Address City/State/[facility] Phone Number [facility] [address] [place] [address] [facility] [address] [place] [address] after 07/13/2018 Insurance Type Payer Benefit Subscriber ID Effective Phone Address Plan / Dates Group HMO CIGNA CIGNA OPEN xxxxxxxxxxx 2017-P ACCESS/NET resent WORK Advance Directives For more information, please contact: [phone] Patient Marketing Planning Manager Explanation Type Date Recorded Advance Directives, Living Will and Medical Power of Luggage Repairer
--- OUTSIDE RECORDS SUMMARY | 2019-07-14 07:34 | XMS REPORT | Continuity of Care Document ---
Author Author IMT Organization IMT Address Unknown Phone Unavailable Care Team Providers Care Lamp Wirer Name Role Phone IMT Unavailable Unavailable Problems Problem Status Onset Date Classification Date Reported Comments Source CHEST PAIN Active 05/14/2012 [facility] CHEST PAIN TYPICAL Active 05/14/2012 [facility] Acute non-ST segment elevation myocardial infarction Active Problem 05/19/2012 [facility] Chest pain Active Problem 05/19/2012 [facility] CHEST PAIN NOS Active [facility] Medications Medication Details Route Status Patient Instructions Ordering Provider Order Date Source metoprolol 25 mg oral tablet, extended release 25 mg, 1 tab, PO, Daily, 30 tab, 1, 1, Substitution Allowed, ERTAB PO Active [facility] 05/17/2012 [facility] aspirin 325 mg tablet, enteric coated 325 mg, 1 tab, PO, Daily, 30 tab, 1, 1, Substitution Allowed, ECTAB PO Active [facility] 05/17/2012 [facility] Plavix 75 mg oral tablet 75 mg, 1 tab, PO, Daily, 30 tab, 1, 1, Substitution Allowed, TAB PO Active [facility] 05/17/2012 [facility] docusate sodium 100 mg oral capsule 100 mg, 1 cap, Route: PO, Drug form: CAP, BID, PRN Bowel Movements, Priority: NOW, Start date: 05/17/12 10:51:00, Duration: 30 day, Stop date: 06/16/12 10:50:00 PO No Longer Active [facility] 05/17/2012 [facility] calcium gluconate + Sodium Chloride 0.9% IV 80 mL 2,000 mg, 20 mL, Route: IVPB, ONCE, Start date: 05/17/12 9:58:00, Stop date: 05/17/12 9:58:00 IVPB No Longer Active [facility] 05/17/2012 [facility] magnesium sulfate 2 gm, 50 mL, Route: IVPB, Drug form: INJ, ONCE, Total dose=2 gm, Start date: 05/17/12 9:58:00, Duration: 1 doses or times, Stop date: 05/17/12 9:58:00 IVPB No Longer Active [facility] 05/17/2012 [facility] Protonix 40 mg, 1 tab, Route: PO, Drug form: ECTAB, Before Dinner, Start date: 05/16/12 16:30:00, Duration: 30 day, Stop date: 06/14/12 16:30:00 PO No Longer Active [facility] 05/16/2012 [facility] Plavix 75 mg, 1 tab, Route: PO, Drug form: TAB, Daily, Start date: 05/16/12 9:00:00, Duration: 30 day, Stop date: 06/14/12 9:00:00 PO No Longer Active [facility] 05/16/2012 [facility] magnesium oxide 400 mg, 1 tab, Route: PO, Drug form: TAB, BID, Start date: 05/16/12 9:00:00, Duration: 30 day, Stop date: 06/14/12 17:00:00 PO No Longer Active [facility] 05/16/2012 [facility] heparin 5000 units/mL injectable solution 5,000 unit, 1 mL, Route: SUB-Q, Drug form: INJ, Q8H, Start date: 05/16/12 0:00:00, Duration: 30 day, Stop date: 06/14/12 16:00:00 SUB-Q No Longer Active [facility] 05/16/2012 [facility] pravastatin 20 mg, 1 tab, Route: PO, Drug form: TAB, QPM, Start date: 05/15/12 17:00:00, Duration: 30 day, Stop date: 06/13/12 17:00:00 PO No Longer Active [facility] 05/15/2012 [facility] clopidogrel 600 mg, 8 tab, Route: PO, Drug form: TAB, ONCE, Start date: 05/15/12 9:55:00, Duration: 1 doses or times, Stop date: 05/15/12 9:55:00 PO No Longer Active Lan 05/15/2012 [facility] aspirin 325 mg, 1 tab, Route: PO, Drug form: TAB, Daily, Start date: 05/15/12 9:00:00, Duration: 30 day, Stop date: 06/13/12 9:00:00 PO No Longer Active [facility] 05/15/2012 [facility] pneumococcal 23-valent vaccine 0.5 ml, Route: IM, Drug Form: INJ, Daily, Start date: 05/15/12 9:00:00, Duration: 1 doses or times, Stop date: 05/15/12 9:00:00 IM No Longer Active [facility] 05/15/2012 [facility] heparin 5,000 unit, 1 mL, Route: SUB-Q, Drug form: INJ, Q12H, Start date: 05/15/12 9:00:00, Duration: 30 day, Stop date: 06/13/12 21:00:00 SUB-Q No Longer Active [facility] 05/15/2012 [facility] metoprolol extended release 25 mg, 1 tab, Route: PO, Drug form: ERTAB, Daily, Start date: 05/15/12 9:00:00, Duration: 30 day, Stop date: 06/13/12 9:00:00 PO No Longer Active [facility] 05/15/2012 [facility] lisinopril 10 mg, 1 tab, Route: PO, Drug form: TAB, Daily, Start date: 05/15/12 9:00:00, Duration: 30 day, Stop date: 06/13/12 9:00:00 PO No Longer Active [facility] 05/15/2012 [facility] heparin 2,400 unit, 2.4 mL, Route: IV, Drug form: INJ, PRN, PRN Abnormal Lab Result, Start date: 05/15/12 3:42:00, Duration: 30 day, Stop date: 06/14/12 3:41:00 IV No Longer Active [facility] 05/15/2012 [facility] Heparin - infusion (ACS Protocol) heparin 25,000 units in D5W 500 mL Premix 25,000 unit 25,000 unit, 500 mL, Rate: Start at 13 units/kg/hr - adjust per ACS protocol, Route: IV, Total Volume: 500 ml, Start date: 05/15/12 3:29:00, Duration: 30 day, Stop date: 06/14/12 3:28:00, Replace Every: 24 hr IV No Longer Active [facility] 05/15/2012 [facility] Heparin - one time bolus for ACS 4,900 unit, 4.9 mL, Route: IV, Drug form: INJ, ONCE, Priority: STAT, Start date: 05/15/12 3:29:00, Stop date: 05/15/12 3:29:00 IV No Longer Active [facility] 05/15/2012 [facility] Tradjenta 5 mg oral tablet 5 mg, 1 tab, PO, Daily, Substitution Allowed PO Active 05/15/2012 [facility] lisinopril 10 mg oral tablet 10 mg, 1 tab, PO, Daily, Substitution Allowed PO Active 05/15/2012 [facility] pravastatin 20 mg oral tablet 20 mg, 1 tab, PO, Daily, Substitution Allowed PO Active 05/15/2012 [facility] insulin aspart 2 unit, 0.02 mL, Route: SUB-Q, Drug form: SOLN, TID-Before Meals, PRN Blood Glucose Results, Start date: 05/15/12 0:46:00, Duration: 30 day, Stop date: 06/14/12 0:45:00 SUB- Q No Longer Active [facility] 05/15/2012 [facility] glucagon 1 mg, Route: IM, Drug form: PDR/INJ, PRN, PRN Blood Glucose Results, Start date: 05/15/12 0:46:00, Duration: 30 day, Stop date: 06/14/12 0:45:00 IM No Longer Active [facility] 05/15/2012 [facility] Dextrose 50% Syringe 12.5 gm, 25 mL, Route: IVP, Drug Form: INJ, PRN, PRN Blood Glucose Results, Start date: 05/15/12 0:46:00, Duration: 30 day, Stop date: 06/14/12 0:45:00 IVP No Longer Active [facility] 05/15/2012 [facility] acetaminophen 650 mg, 2 tab, Route: PO, Drug form: TAB, Q4H, PRN Pain/Fever, Start date: 05/15/12 0:36:00, Duration: 30 day, Stop date: 06/14/12 0:35:00 PO No Longer Active [facility] 05/15/2012 [facility] temazepam 15 mg, 1 cap, Route: PO, Drug form: CAP, Bedtime, PRN Insomnia, Start date: 05/15/12 0:36:00, Duration: 30 day, Stop date: 06/14/12 0:35:00 PO No Longer Active [facility] 05/15/2012 [facility] Omnipaque 350mg/ml 150 mL, Route: IVP, Drug Form: SOLN, ONCALL, STAT, Start date: 05/14/12 22:40:00, Duration: 1 doses or times, Dose=2.2ml/kg, Max [id number]=[id number]=7.2ml/kg, Max [id number] IVP No Longer Active [facility] 05/15/2012 [facility] morphine Sulfate 2 mg, 0.5 mL, Route: IVP, Drug form: INJ, ONCE, Priority: STAT, Start date: 05/14/12 22:33:00, Stop date: 05/14/12 22:33:00 IVP No Longer Active [facility] 05/15/2012 [facility] nitroglycerin 2% topical ointment 1 inch, Route: TOP, ONCE, STAT, Start date: 05/14/12 22:14:00, Stop date: 05/14/12 22:14:00 TOP No Longer Active [facility] 05/15/2012 [facility] nitroglycerin SL Tab 0.6 mg, Route: SL, ONCE, Start date: 05/14/12 22:11:00, Stop date: 05/14/12 22:11:00 SL No Longer Active [facility] 05/15/2012 [facility] NS (Bolus) IV 1,000 mL 1,000 mL, Rate: 1,000 ml/hr, Infuse over: 1 hr, Route: IV, Dosing Weight 100 kg, Total Volume: 1,000, Start date: 05/14/12 21:09:00, Duration: 30 day, Stop date: 06/13/12 21:08:00 IV No Longer Active [facility] 05/15/2012 [facility] morphine Sulfate 2 mg, 0.5 mL, Route: IVP, Drug form: INJ, ONCE, Priority: STAT, Start date: 05/14/12 20:54:00, Stop date: 05/14/12 20:54:00 IVP No Longer Active [facility] 05/15/2012 [facility] metoprolol tartrate Substitution Allowed No Longer Active 05/15/2012 [facility] metFORmin 1,000 mg, PO, BID, Substitution Allowed PO Active 05/15/2012 [facility] aspirin 81 mg tablet, enteric coated 81 mg, 1 tab, Route: PO, Drug form: ECTAB, ONCE, Priority: STAT, Start date: 05/14/12 19:58:00, Stop date: 05/14/12 19:58:00 PO No Longer Active [facility] 05/15/2012 [facility] morphine Sulfate 4 mg, 1 mL, Route: IVP, Drug form: INJ, ONCE, Priority: STAT, Start date: 05/14/12 19:58:00, Stop date: 05/14/12 19:58:00 IVP No Longer Active [facility] 05/15/2012 [facility] Allergies, Adverse Reactions, Alerts Substance Category Reaction Severity Reaction type Status Date Reported Comments Source Zocor drug allergy Allergy Active [facility] Immunizations Immunization Date Given Site Status Last Updated Comments Source pneumococcal 23-valent vaccine 05/15/2012 completed Katharina [facility] Results Order Name Results Value Reference Range Date Interpretation Comments Source BEDSIDE GLUCOSE TESTING Gluc POC Lifscn 203 70 - 99 05/17/2012 HI <sup>1</sup>Interpretive Data: Upper Reportable Limit: 200 mg/dL. [facility] BEDSIDE GLUCOSE TESTING Gluc POC Lifscn 69 70 - 99 05/17/2012 LOW <sup>2</sup>Interpretive Data: Upper Reportable Limit: 200 mg/dL. [facility] CHEMISTRY Phosphorus 4.1 2.5 - 4.5 05/17/2012 Normal [facility] CHEMISTRY Ca Ion 1.02 1.16 - 1.30 05/17/2012 LOW [facility] CHEMISTRY Ca Norm 1.04 1.16 - 1.30 05/17/2012 LOW [facility] CHEMISTRY Ca Norm mgdL 4.16 4.65 - 5.20 05/17/2012 LOW [facility] CHEMISTRY Ca Ion mgdL 4.08 4.65 - 5.20 05/17/2012 LOW [facility] CHEMISTRY Magnesium Lvl 1.7 1.8 - 2.4 05/17/2012 LOW [facility] CHEMISTRY AGAP 16.2 10.0 - 20.0 05/17/2012 Normal [facility] CHEMISTRY Calcium Lvl 8.8 8.5 - 10.5 05/17/2012 Normal [facility] CHEMISTRY CO2 23 24 - 32 05/17/2012 LOW [facility] CHEMISTRY Glucose Lvl 120 70 - 99 05/17/2012 HI <sup>5</sup>Interpretive Data: Adult reference range values reflect the clinical guidelines
of the [employer] [employer]. [facility] CHEMISTRY Creatinine Lvl 0.9 0.5 - 1.4 05/17/2012 Normal [facility] CHEMISTRY Chloride Lvl 106 95 - 109 05/17/2012 Normal [facility] CHEMISTRY Potassium Lvl 4.2 3.5 - 5.1 05/17/2012 Normal <sup>4</sup>Result Comment: Specimen Slightly Hemolyzed. [facility] CHEMISTRY BUN 15 7 - 22 05/17/2012 Normal [facility] CHEMISTRY Sodium Lvl 141 135 - 145 05/17/2012 Normal [facility] HEMATOLOGY Eosinophils # 0.3 0.0 - 0.5 05/17/2012 Normal [facility] HEMATOLOGY Lymphocytes # 2.9 1.0 - 5.5 05/17/2012 Normal [facility] HEMATOLOGY Segs-Bands # 6.6 1.5 - 8.1 05/17/2012 Normal [facility] HEMATOLOGY Monocytes # 0.6 0.0 - 0.8 05/17/2012 Normal [facility] HEMATOLOGY Basophils # 0.1 0.0 - 0.2 05/17/2012 Normal [facility] HEMATOLOGY Segs 63.4 45.0 - 75.0 05/17/2012 Normal [facility] HEMATOLOGY Lymphocytes 27.5 20.0 - 40.0 05/17/2012 Normal [facility] HEMATOLOGY Eosinophils 2.8 0.0 - 4.0 05/17/2012 Normal [facility] HEMATOLOGY Monocytes 5.8 2.0 - 12.0 05/17/2012 Normal [facility] HEMATOLOGY Basophils 0.5 0.0 - 1.0 05/17/2012 Normal [facility] HEMATOLOGY MCHC 33.5 32.0 - 36.0 05/17/2012 Normal [facility] HEMATOLOGY MPV 9.1 7.4 - 10.4 05/17/2012 Normal [facility] HEMATOLOGY Platelet 196 133 - 450 05/17/2012 Normal [facility] HEMATOLOGY RDW 13.6 11.5 - 14.5 05/17/2012 Normal [facility] HEMATOLOGY Hct 39.0 42.0 - 54.0 05/17/2012 LOW [facility] HEMATOLOGY MCV 87.4 80.0 - 94.0 05/17/2012 Normal [facility] HEMATOLOGY MCH 29.3 27.0 - 31.0 05/17/2012 Normal [facility] HEMATOLOGY Hgb 13.1 14.0 - 18.0 05/17/2012 LOW [facility] HEMATOLOGY WBC 10.5 3.7 - 10.4 05/17/2012 HI [facility] HEMATOLOGY RBC 4.47 4.70 - 6.10 05/17/2012 [facility] BEDSIDE GLUCOSE TESTING Gluc POC Lifscn 134 70 - 99 05/17/2012 HI <sup>3</sup>Interpretive Data: Upper Reportable Limit: 200 mg/dL. [facility] HEMATOLOGY Plav Effect Plt 26 05/16/2012 NA [...] GP IIb/IIIa Inhibitor, e.g. ReoPro or Integrilin [facility] BEDSIDE GLUCOSE TESTING Comment1 Notify RN/MD 05/16/2012 NA [facility] CHEMISTRY Magnesium Lvl 1.7 1.8 - 2.4 05/16/2012 LOW [facility] CHEMISTRY Ca Ion 1.23 1.16 - 1.30 05/16/2012 Normal [facility] CHEMISTRY Ca Ion mgdL 4.92 4.65 - 5.20 05/16/2012 Normal [facility] CHEMISTRY Ca Norm 1.26 1.16 - 1.30 05/16/2012 Normal [facility] CHEMISTRY Ca Norm mgdL 5.04 4.65 - 5.20 05/16/2012 Normal [facility] CHEMISTRY Calcium Lvl 9.0 8.5 - 10.5 05/16/2012 Normal [facility] CHEMISTRY CO2 26 24 - 32 05/16/2012 Normal [facility] CHEMISTRY Chloride Lvl 104 95 - 109 05/16/2012 Normal [facility] CHEMISTRY Sodium Lvl 142 135 - 145 05/16/2012 Normal [facility] CHEMISTRY Creatinine Lvl 0.9 0.5 - 1.4 05/16/2012 Normal [facility] CHEMISTRY BUN 14 7 - 22 05/16/2012 Normal [facility] CHEMISTRY Potassium Lvl 4.0 3.5 - 5.1 05/16/2012 Normal [facility] CHEMISTRY Glucose Lvl 130 70 - 99 05/16/2012 HI <sup>6</sup>Interpretive Data: Adult reference range values reflect the clinical guidelines
of the [place] [employer]. [facility] CHEMISTRY AGAP 16.0 10.0 - 20.0 05/16/2012 Normal [facility] CHEMISTRY Phosphorus 4.6 2.5 - 4.5 05/16/2012 HI [facility] HEMATOLOGY Segs-Bands # 6.6 1.5 - 8.1 05/16/2012 Normal [facility] HEMATOLOGY Lymphocytes # 2.5 1.0 - 5.5 05/16/2012 Normal [facility] HEMATOLOGY Monocytes # 0.7 0.0 - 0.8 05/16/2012 Normal [facility] HEMATOLOGY Basophils 0.2 0.0 - 1.0 05/16/2012 Normal [facility] HEMATOLOGY Segs 64.8 45.0 - 75.0 05/16/2012 Normal [facility] HEMATOLOGY Eosinophils # 0.3 0.0 - 0.5 05/16/2012 Normal [facility] HEMATOLOGY Basophils # 0.0 0.0 - 0.2 05/16/2012 Normal [facility] HEMATOLOGY Lymphocytes 24.5 20.0 - 40.0 05/16/2012 [facility] HEMATOLOGY Monocytes 7.1 2.0 - 12.0 05/16/2012 [facility] HEMATOLOGY Eosinophils 3.4 0.0 - 4.0 05/16/2012 [facility] HEMATOLOGY MCV 87.7 80.0 - 94.0 05/16/2012 [facility] HEMATOLOGY MCHC 33.5 32.0 - 36.0 05/16/2012 [facility] HEMATOLOGY RDW 13.4 11.5 - 14.5 05/16/2012 [facility] HEMATOLOGY MCH 29.4 27.0 - 31.0 05/16/2012 [facility] HEMATOLOGY Platelet 200 133 - 450 05/16/2012 [facility] HEMATOLOGY MPV 9.1 7.4 - 10.4 05/16/2012 [facility] HEMATOLOGY WBC 10.2 3.7 - 10.4 05/16/2012 [facility] HEMATOLOGY RBC 4.36 4.70 - 6.10 05/16/2012 [facility] HEMATOLOGY Hct 38.2 42.0 - 54.0 05/16/2012 [facility] HEMATOLOGY Hgb 12.8 14.0 - 18.0 05/16/2012 [facility] BEDSIDE GLUCOSE TESTING Comment1 Notify RN/ 05/16/2012 [facility] CHEMISTRY U Phencyc Scr Negative *NA* (05/15/2012 10:23:00) Negative 05/15/2012 [facility] CHEMISTRY UDS Note See Note 14 (05/15/2012 [...] 300 ng/ mL
Urine alcohol 20 mg/dL [facility] CHEMISTRY U Opiate Scr Positive *ABN* (05/15/2012 10:23:00) Negative 05/15/2012 ABN [facility] CHEMISTRY U Cannab Scr Negative *NA* (05/15/2012 10:23:00) Negative 05/15/2012 NA [facility] CHEMISTRY U Benzodia Scr Negative *NA* (05/15/2012 10:23:00) Negative 05/15/2012 [facility] CHEMISTRY U Cocaine Scr Negative *NA* (05/15/2012 10:23:00) Negative 05/15/2012 NA [facility] CHEMISTRY U Amph Scr Negative *NA* (05/15/2012 10:23:00) Negative 05/15/2012 [facility] CHEMISTRY U Adilene Scr Negative *NA* (05/15/2012 10:23:00) Negative 05/15/2012 NA [facility] CHEMISTRY U Propoxyph Scr Negative *NA* (05/15/2012 10:23:00) Negative 05/15/2012 [facility] CHEMISTRY U Methadone Scr Negative *NA* (05/15/2012 10:23:00) Negative 05/15/2012 [facility] HEMATOLOGY PTT 44.9 22.9 - 35.8 05/15/2012 HI <sup>16</sup>Interpretive Data: Heparin Therapeutic Range: 57 - 92 Seconds [facility] BEDSIDE GLUCOSE TESTING Comment1 Notify RN/ 05/15/2012 [facility] CHEMISTRY Troponin-T 0.128 0.000 - 0.100 05/15/2012 CRIT <sup>8</sup>Result Comment: Critical Result(s) called to Day Desai at 05/15/2012 08:16:05 CDT by Melvin. Read back OK. [facility] CHEMISTRY Total CK 259 12 - 191 05/15/2012 [facility] CHEMISTRY Troponin-I 2.72 0.00 - 0.40 05/15/2012 CRIT <sup>10</sup>Result Comment: Critical Result(s) called to day katharina at 05/15/2012 08:10:32 CDT by mlban. Read back OK. [facility] CHEMISTRY Hgb A1C 7.6 05/15/2012 NA <sup>13</sup>Interpretive [...] 240 Poor Control, take action to lower [facility] CHEMISTRY CK MB Index 6.8 0.0 - 2.5 05/15/2012 [facility] CHEMISTRY CK MB 17.6 0.5 - 3.6 05/15/2012 [facility] HEMATOLOGY Lymphocytes # 3.8 1.0 - 5.5 05/15/2012 [facility] HEMATOLOGY Segs-Bands # 6.2 1.5 - 8.1 05/15/2012 [facility] HEMATOLOGY Basophils 0.5 0.0 - 1.0 05/15/2012 [facility] HEMATOLOGY Eosinophils 2.7 0.0 - 4.0 05/15/2012 [facility] HEMATOLOGY Monocytes 6.1 2.0 - 12.0 05/15/2012 Normal [facility] HEMATOLOGY Basophils # 0.1 0.0 - 0.2 05/15/2012 [facility] HEMATOLOGY Eosinophils # 0.3 0.0 - 0.5 05/15/2012 [facility] HEMATOLOGY Monocytes # 0.7 0.0 - 0.8 05/15/2012 [facility] HEMATOLOGY Lymphocytes 34.4 20.0 - 40.0 05/15/2012 Normal [facility] HEMATOLOGY Segs 56.3 45.0 - 75.0 05/15/2012 Normal [facility] HEMATOLOGY RBC 4.04 4.70 - 6.10 05/15/2012 [facility] HEMATOLOGY MCHC 34.0 32.0 - 36.0 05/15/2012 Normal [facility] HEMATOLOGY MCH 29.7 27.0 - 31.0 05/15/2012 Normal [facility] HEMATOLOGY MCV 87.4 80.0 - 94.0 05/15/2012 Normal [facility] HEMATOLOGY Hct 35.4 42.0 - 54.0 05/15/2012 [facility] HEMATOLOGY Hgb 12.0 14.0 - 18.0 05/15/2012 [facility] HEMATOLOGY RDW 13.7 11.5 - 14.5 05/15/2012 Normal [facility] HEMATOLOGY MPV 9.1 7.4 - 10.4 05/15/2012 Normal [facility] HEMATOLOGY Platelet 195 133 - 450 05/15/2012 Normal [facility] HEMATOLOGY WBC 11.1 3.7 - 10.4 05/15/2012 HI [facility] HEMATOLOGY PTT 31.0 22.9 - 35.8 05/15/2012 Normal <sup>17</sup>Interpretive Data: Heparin Therapeutic Range: 57 - 92 Seconds [facility] HEMATOLOGY INR 1.05 0.85 - 1.17 05/15/2012 Normal <sup>15</sup>Interpretive Data: RECOMMENDED RANGES FOR PROTIME INR:
2.0-3.0 for most medical and surgical thromboembolic states.
2.5-3.5 for artificial heart valves and recurrent embolism.

INR SHOULD BE USED ONLY FOR PATIENTS ON STABLE ANTICOAGULANT THERAPY. [facility] HEMATOLOGY PT 13.7 12.0 - 14.7 05/15/2012 Normal [facility] CHEMISTRY Ca Ion mgdL 4.60 4.65 - 5.20 05/15/2012 [facility] CHEMISTRY Ca Norm 1.18 1.16 - 1.30 05/15/2012 Normal [facility] CHEMISTRY Ca Norm mgdL 4.72 4.65 - 5.20 05/15/2012 Normal [facility] CHEMISTRY Ca Ion 1.15 1.16 - 1.30 05/15/2012 LOW [facility] CHEMISTRY Phosphorus 3.6 2.5 - 4.5 05/15/2012 Normal [facility] CHEMISTRY Magnesium Lvl 1.5 1.8 - 2.4 05/15/2012 LOW [facility] CHEMISTRY AGAP 17.0 10.0 - 20.0 05/15/2012 Normal [facility] CHEMISTRY Calcium Lvl 8.4 8.5 - 10.5 05/15/2012 LOW [facility] CHEMISTRY CO2 23 24 - 32 05/15/2012 LOW [facility] CHEMISTRY Chloride Lvl 105 95 - 109 05/15/2012 Normal [facility] CHEMISTRY Potassium Lvl 4.0 3.5 - 5.1 05/15/2012 Normal [facility] CHEMISTRY Sodium Lvl 141 135 - 145 05/15/2012 Normal [facility] CHEMISTRY Creatinine Lvl 0.9 0.5 - 1.4 05/15/2012 Normal [facility] CHEMISTRY BUN 13 7 - 22 05/15/2012 Normal [facility] CHEMISTRY Glucose Lvl 117 70 - 99 05/15/2012 HI <sup>7</sup>Interpretive Data: Adult reference range values reflect the clinical guidelines
of the [employer] [employer]. [facility] CHEMISTRY Troponin-T 0.148 0.000 - 0.100 05/15/2012 CRIT <sup>9</sup>Result Comment: Critical Result(s) called to Dacia Weiss at _05/15/2012 02:58:06 CDT by_[facility]. Read back OK. [facility] CHEMISTRY Troponin-I 2.91 0.00 - 0.40 05/15/2012 CRIT <sup>11</sup>Result Comment: Critical Result(s) called to cherelle ray at 05/15/2012 02:34:53 CDT bydrake. Read back OK. [facility] CHEMISTRY Total CK 252 12 - 191 05/15/2012 HI [facility] CHEMISTRY LDL 78 0 - 129 05/15/2012 Normal [facility] CHEMISTRY Chol 147 120 - 200 05/15/2012 Normal [facility] CHEMISTRY HDL 42 >=35 05/15/2012 Normal [facility] CHEMISTRY Trig 133 0 - 200 05/15/2012 Normal [facility] CHEMISTRY CHD Risk 3.50 4.00 - 7.30 05/15/2012 LOW [facility] CHEMISTRY TSH 2.780 0.360 - 3.740 05/15/2012 Normal [facility] CHEMISTRY CK MB 18.9 0.5 - 3.6 05/15/2012 [facility] CHEMISTRY CK MB Index 7.5 0.0 - 2.5 05/15/2012 [facility] CHEMISTRY Bili Total 0.4 0.2 - 1.3 05/15/2012 Normal [facility] CHEMISTRY Alk Phos 115 39 - 136 05/15/2012 Normal [facility] CHEMISTRY AST 40 0 - 37 05/15/2012 [facility] CHEMISTRY Total Protein 7.8 6.4 - 8.4 05/15/2012 Normal [facility] CHEMISTRY Albumin Lvl 4.3 3.5 - 5.0 05/15/2012 Normal [facility] CHEMISTRY ALT 46 0 - 65 05/15/2012 Normal [facility] CHEMISTRY B/C Ratio 13 6 - 25 05/15/2012 Normal [facility] CHEMISTRY Globulin 3.5 2.0 - 4.0 05/15/2012 Normal [facility] CHEMISTRY A/G Ratio 1.2 0.7 - 1.6 05/15/2012 Normal [facility] CHEMISTRY Troponin-I 1.62 0.00 - 0.40 05/15/2012 CRIT <sup>12</sup>Result Comment: Critical Result(s) called to Shae Pena at _05/14/2012 21:30:13 CDT by_fcl. Read back OK. [facility] CHEMISTRY Myoglobin 82 25 - 72 05/15/2012 [facility] CHEMISTRY Troponin-T 0.092 0.000 - 0.100 05/15/2012 Normal [facility] CHEMISTRY Total CK 239 12 - 191 05/15/2012 [facility] CHEMISTRY CK MB Index 7.0 0.0 - 2.5 05/15/2012 [facility] CHEMISTRY CK MB 16.8 0.5 - 3.6 05/15/2012 [facility] Pathology Reports No Data Provided for This Section Diagnostic Reports No Data Provided for This Section Consultation Notes No Data Provided for This Section Discharge Summaries No Data Provided for This Section History and Physicals No Data Provided for This Section Vital Signs Vital Sign Value Date Comments Source Diastolic (mm Hg) 75 05/17/2012 [facility] Systolic (mm Hg) 107 05/17/2012 [facility] Diastolic (mm Hg) 60 05/17/2012 [facility] Systolic (mm Hg) 110 05/17/2012 [facility] Temperature Oral (F) 97.3 F 05/17/2012 [facility] Diastolic (mm Hg) 78 05/17/2012 [facility] Systolic (mm Hg) 112 05/17/2012 [facility] Temperature Oral (F) 97.8 F 05/17/2012 [facility] Temperature Oral (F) 98.2 F 05/17/2012 [facility] Respitory Rate 20 05/16/2012 [facility] Respitory Rate 20 05/16/2012 [facility] Respitory Rate 20 05/16/2012 [facility] Weight 81.4 05/15/2012 [facility] Weight 104.347 05/15/2012 [facility] Height 170.18 cm 05/15/2012 [facility] Height 170.18 cm 05/15/2012 [facility] Weight 104.091 05/15/2012 [facility] Height 170.18 cm 05/14/2012 [facility] Encounters Location Location Details Encounter Type Encounter Number Reason For Visit Attending Provider ADM Date DC Date Status Source [facility] Inpatient [id number] CHEST PAIN TYPICAL ALI DENKTAS 05/14/2012 05/17/2012 Active [facility] Outpatient [id number] Marcus Jeffries 07/26/2019 Active [facility] Procedures No Data Provided for This Section [...]
[2019-07-14 09:40] VITALS: BP 139/89
--- NOTE | 2019-07-15 00:34 | Operative Report ---
DATE OF PROCEDURE: 07/14/2019 SURGEON: Mg Obrien MD PREOPERATIVE DIAGNOSES: Right-sided ureteral calculus, right ureteral stent, right hydronephrosis. POSTOPERATIVE DIAGNOSES: Right-sided ureteral calculus, right ureteral stent, right hydronephrosis. PROCEDURES: 1. Cystourethroscopy with complicated removal of right indwelling ureteral stent (entirely separate procedure for the diagnosis of a right indwelling ureteral stent). 2. Right-sided ureteroscopy with laser lithotripsy (entirely separate procedure for right ureteral calculi). 3. Right-sided ureteroscopy with stone extraction (entirely separate procedure with explicit purpose of sending stones for analysis, not required for laser lithotripsy). 4. Supervision of fluoroscopy for both laser lithotripsy, ureteroscopy and stent removal portions. 5. Interpretation of retrograde pyelography. ANESTHESIA: General. ESTIMATED BLOOD LOSS: Minimal. COMPLICATIONS: None. INDICATIONS FOR PROCEDURE: Mr. Camacho is a very pleasant 63-year-old male with an 8 mm stone. He now presents for definitive management. He voiced understanding of the options, alternatives, risks, and benefits and he elected to proceed. PROCEDURE IN DETAIL: After informed consent was obtained, the patient was taken to the operative suite, placed supine on the operating table, underwent general anesthesia by Anesthesia Service, was placed in the dorsal lithotomy position, sterilely prepped and draped in standard fashion for cystoscopy. A 21-Romansh cystoscope was inserted per urethra. Normal urethra was noted. Panendoscopy of the bladder revealed no tumors, no stones. Stents were seen extruding from right ureteral orifices and removed intact. Attempts were made to catheterize this failed. A guidewire was then reinserted with a coil over the renal pelvis. The ureteroscope was advanced to 8 mm proximal stone. Utilizing a 365 micron laser fiber, the stone was obliterated in multiple small fragments several of which were basket extracted and passed off the table for explicit purpose of stone analysis, not required for laser lithotripsy. At this time, ureteroscope was advanced. Retrograde pyelogram was performed revealing no other filling defects. The safety wire was removed. The bladder was drained. The patient was awakened from anesthesia and transported to the recovery room in excellent condition. Supervision of fluoroscopy and interpretation of retrograde pyelography: I was present for the entire procedure and supervised fluoroscopy. There was no radiologist present. Attention was turned towards the right ureteral orifices, which were catheterized and retrograde pyelogram performed revealing removal of 8 mm right proximal ureteral calculus and stent. MD BAKARI Sunshine/MODL /[id number]
== END | disposition home or self-care (01) ==
LOC: OR 07:30
PROVIDERS: ATTEND Urology
DX: N20.1 Calculus of ureter (principal); Z46.6 Encounter for fitting and adjustment of urinary device; N13.30 Unspecified hydronephrosis; Z79.02 Long term (current) use of antithrombotics/antiplatelets; Z79.82 Long term (current) use of aspirin; Z79.84 Long term (current) use of oral hypoglycemic drugs
CPT/HCPCS: 36415; 52353; 74420; 82948; 88300; C1758; J0696; J1100; J2001; J2405; J2704; J3010; Q9967

== ENCOUNTER 2019-12-23 16:23 | Emergency (ER) | payer OTHER ==
[~2019-12-23] VITALS: Ht 170.2 cm; Wt 108.9 kg
[~2019-12-23 16:23] MED LIST changes: -CEFTRIAXONE SOD 1 GM/NS 50 ML 50 ML IV ONE; -DEXAMETHASONE SOD PHOS INJ 4 MG/ML VIAL ONE; -EPHEDRINE SULFATE INJ 50 MG/10 ML SYR ONE; -FENTANYL CITRATE/PF 100MCG/2 ML INJ ONE; -IOPAMIDOL 300 MG/ML 15ML VIAL IT ONE; -LIDOCAINE HCL 2% LOCAL INJ 5 ML SDV VIAL INJ ONE; -ONDANSETRON HCL INJ 2MG/ML 2ML 2 MG/ML VIAL ONE; -PROPOFOL IV EMULSION 10 MG/ML 20 ML VIAL ONE; -SEVOFLURANE INHAL SOLN 250 ML PEN BTL ONE
[2019-12-23] MEDS ORDERED: OXYMETAZOLINE HCL 0.05% NAS 1 SPRAY BTL ONE (17:00)
[2019-12-23 17:26] LABS: BASOPHILS % 0.4 % (0.0-1.0); EOSINOPHILS # (AUTO) 0.1 (0.0-0.4); EOSINOPHILS % 1.6 % (0.0-6.0); HEMATOCRIT 34.4 % (38.2-49.6); HEMOGLOBIN 11.3 g/dL (14.0-18.0); LYMPHOCYTES # (AUTO) 2.6 (1.0-3.2); LYMPHOCYTES % 31.4 % (18.0-39.1); MEAN CORPUSCULAR HEMOGLOBIN 28.5 pg (28-32); MEAN CORPUSCULAR HGB CONC 32.8 g/dL (31-35); MEAN CORPUSCULAR VOLUME 86.6 fL (81-99); MONOCYTES # (AUTO) 0.8 (0.2-0.8); MONOCYTES % 9.7 % (4.4-11.3); NEUTROPHILS # (AUTO) 4.7 (2.1-6.9); NEUTROPHILS % 56.5 % (38.7-80.0); PLATELET COUNT 260 x10e3/uL (140-360); RED BLOOD COUNT 3.97 x10e6/uL (4.3-5.7)
[2019-12-23 17:47] LABS: INR 0.94; PARTIAL THROMBOPLASTIN TIME 27.5 seconds (23.8-35.5); PROTHROMBIN TIME 13.1 seconds (11.9-14.5)
[2019-12-23 19:28] VITALS: BP 158/90
== END 2019-12-23 18:40 | disposition home or self-care (01) ==
LOC: ER 16:23
DX: R04.0 Epistaxis (principal); I10 Essential (primary) hypertension; E11.9 Type 2 diabetes mellitus without complications; E78.5 Hyperlipidemia, unspecified; I25.2 Old myocardial infarction; Z95.5 Presence of coronary angioplasty implant and graft; F17.200 Nicotine dependence, unspecified, uncomplicated; Z79.84 Long term (current) use of oral hypoglycemic drugs; Z79.02 Long term (current) use of antithrombotics/antiplatelets; Z79.82 Long term (current) use of aspirin
CPT/HCPCS: 36415; 85025; 85610; 85730; 99284